=== PATIENT | male | born 1990 | race Caucasian/White ===

== ENCOUNTER 2017-01-12 17:46 | Inpatient (IN) | payer OTHER ==
[2017-01-12] VITALS (7 sets, daily range): BP systolic 111–136; BP diastolic 56–73; PULSE 52–86; RESP 15–20; TEMP 96.9–98.7; O2SAT 98–100
[~2017-01-12] VITALS: Ht 177.8 cm; Wt 69.7 kg
--- NOTE | 2017-01-12 18:08 | PD ---
HPI Chief Complaint: Hip Injury Time Seen by Provider: 18:08 Travel History International Travel<30 days: No Contact w/Intl Traveler<30days: No Traveled to known affect area: No History of Present Illness HPI 26 year old male with PMH of IVDA, MSSA osteomyelitis and sepsis of right hip presents to the ED for evaluation of right hip pain. Onset 2 days ago after physical day at work. Patient states the pain is minimal at rest but increases to 10 out of 10 with attempted weightbearing. Patient endorses limitations to range of motion secondary to pain. Patient has been ambulating with crutches. He denies fevers, chills, palpitations, chest pain, shortness of breath, abdominal pain, N/V/D, muscular weakness, numbness or tingling. Patient states that he was admitted to [facility] on January 10. He states that at that time he was diagnosed with osteomyelitis and told that he was to be administered 6 weeks of IV antibiotics. He states that he became agitated after being told that he was not able to have visitors and he left AGAINST MEDICAL ADVICE. Patient also endorses previous history with diagnosis of osteomyelitis in August of this year. He states he was treated at [facility], admitted from August 31-. He never followed up as instructed discharge. He states that he is a "occasional" IVD user, injecting Dilaudid, last use approximately one month ago. REPLACED BY [facility] Social History Alcohol Use: Yes (occasional) Tobacco Use: Yes (one pack per day since age 17) Substance Use: Yes (IV Dilaudid) Allergies-Medications (Allergen,Severity, Reaction): Coded Allergies: No Known Allergies (Unverified , 01/12/17) Reported Meds & Prescriptions Reported Meds & Active Scripts Active Reported Ibuprofen 200 Mg Cap 200 Mg PO Q4H PRN Review of Systems Except as stated in HPI: all other systems reviewed are Neg Physical Exam Narrative GENERAL: Well-nourished, well-developed nontoxic-appearing white male in no acute distress. SKIN: Focused skin assessment warm/dry. HEAD: Normocephalic. EYES: No scleral icterus. No injection or drainage. NECK: Supple, trachea midline. No JVD or lymphadenopathy. CARDIOVASCULAR: Regular rate and rhythm without murmurs, gallops, or rubs. RESPIRATORY: Breath sounds clear and equal bilaterally. No accessory muscle use. GASTROINTESTINAL: Abdomen soft, non-tender, nondistended. Active bowel sounds. MUSCULOSKELETAL: No cyanosis, or edema. FOCUSED RIGHT LOWER EXTREMITY EXAM: 2+ DP pulse. Patient is holding the leg in internal rotation. No leg length discrepancy. Tender to palpation of the right anterolateral hip. Flexion of the hip elicits pain. Internal and external rotation of the hip elicits pain. Sensation intact to light touch distally. Cap refill less than 2 seconds. BACK: Nontender without obvious deformity. No CVA tenderness. Data Data Last Documented VS Vital Signs Date Time Temp Pulse Resp B/P Pulse Ox O2 Delivery O2 Flow Rate FiO2 01/12/17 20:48 63 18 118/73 99 Room Air 01/12/17 17:49 98.7 Orders Complete Blood Count With Diff (01/12/17 18:28) Blood Culture (01/12/17 18:28) Iv Access Insert/Monitor (01/12/17 18:28) Ketorolac Inj (Toradol Inj) (01/12/17 18:30) Hip, Uni(Ap&Lat) Wo Ap Pelvis (01/12/17 18:28) Urinalysis - C+S If Indicated (01/12/17 18:28) Ecg Monitoring (01/12/17 18:28) Drug Screen, Random Urine (01/12/17 18:28) Comprehensive Metabolic Panel (01/12/17 18:28) Oxycodone-Acetamin 5-325 Mg (Percocet (01/12/17 20:45) Vancomycin Inj (Vancomycin Inj) (01/12/17 21:00) Cefepime Inj (Maxipime Inj) (01/12/17 21:00) Mri Pelvis W&W/O Contrast (01/12/17 ) Admit Order (Ed Use Only) (01/12/17 21:33) Consult Infectious Disease (01/12/17 ) Consult Orthopedic (01/12/17 ) Labs Laboratory Tests Test 01/12/17 01/12/17 19:40 20:25 White Blood Count 11.4 TH/MM3 Red Blood Count 4.20 MIL/MM3 Hemoglobin 12.1 GM/DL Hematocrit 35.2 % Mean Corpuscular Volume 84.0 FL Mean Corpuscular Hemoglobin 28.9 PG Mean Corpuscular Hemoglobin 34.4 % Concent Red Cell Distribution Width 13.9 % Platelet Count 240 TH/MM3 Mean Platelet Volume 8.5 FL Neutrophils (%) (Auto) 70.7 % Lymphocytes (%) (Auto) 20.5 % Monocytes (%) (Auto) 8.0 % Eosinophils (%) (Auto) 0.7 % Basophils (%) (Auto) 0.1 % Neutrophils # (Auto) 8.0 TH/MM3 Lymphocytes # (Auto) 2.3 TH/MM3 Monocytes # (Auto) 0.9 TH/MM3 Eosinophils # (Auto) 0.1 TH/MM3 Basophils # (Auto) 0.0 TH/MM3 CBC Comment DIFF FINAL Differential Comment Sodium Level 140 MEQ/L Potassium Level 3.2 MEQ/L Chloride Level 103 MEQ/L Carbon Dioxide Level 30.7 MEQ/L Anion Gap 6 MEQ/L Blood Urea Nitrogen 5 MG/DL Creatinine 0.61 MG/DL Estimat Glomerular Filtration 160 ML/MIN Rate Random Glucose 98 MG/DL Calcium Level 8.7 MG/DL Total Bilirubin 0.2 MG/DL Aspartate Amino Transf 17 U/L (AST/SGOT) Alanine Aminotransferase 38 U/L (ALT/SGPT) Alkaline Phosphatase 68 U/L Total Protein 7.1 GM/DL Albumin 2.7 GM/DL Urine Color YELLOW Urine Turbidity CLEAR Urine pH 6.0 Urine Specific [place] 1.010 Urine Protein NEG mg/dL Urine Glucose (UA) NEG mg/dL Urine Ketones NEG mg/dL Urine Occult Blood NEG Urine Nitrite NEG Urine Bilirubin NEG Urine Urobilinogen LESS THAN 2.0 MG/DL Urine Leukocyte Esterase TRACE Urine Hyaline Casts 1 /lpf Microscopic Urinalysis Comment CULT NOT INDICATED Urine Opiates Screen NEG Urine Barbiturates Screen POS Urine Amphetamines Screen NEG Urine Benzodiazepines Screen NEG Urine Cocaine Screen NEG Urine Cannabinoids Screen POS [facility] Medical Decision Making Medical Screen Exam Complete: Yes Emergency Medical Condition: Yes Differential Diagnosis sacroiliitis versus osteoarthritis versus osteomyelitis versus septic joint versus other Narrative Course 26 year old male with PMH of IVDA, osteomyelitis right hip presents to the ED for evaluation of right hip pain. Onset 2 days ago. Reports minimal pain at rest but 10/10 with attempted weightbearing. Patient endorses limitations to range of motion secondary to pain. Patient has been ambulating with crutches. Patient states that he was febrile and having hip pain on January 10, went to [facility], was diagnosed with osteomyelitis and and told that he was to be administered 6 weeks of IV antibiotics. He states that he left AGAINST MEDICAL ADVICE. Patient also endorses previous history with diagnosis of osteomyelitis in August last year, treated at [facility], admitted from August 31-. Endorses injecting Dilaudid, last use approximately one month ago. Patient is afebrile and normotensive on presentation. Physical exam reveals a nontoxic-appearing white male in no acute distress. Ambulating with crutches. He does have tenderness to palpation over the anterolateral hip as well as pain elicited with attempted flexion and internal and external rotation. Palpable pulses in bilateral lower extremities. Neurovascularly intact. He was administered IV Toradol and by mouth Percocet. Medical record was received from [facility]. Cultures preliminarily show gram negative rods. Patient was receiving IV vancomycin and cefepime with plan for 6 weeks of treatment by ID. MRI pelvis with and without contrast report from reveals right sacroiliac joint effusion which is suspicious for septic arthritis with osteomyelitis of the right sacral ala and right iliac bone as well as myositis of the right iliacus muscle per Dr. Robert Mcfarlane. CBC: WBC 11.4, 70.7% neutrophils. Hemoglobin 12.3. CMP: Potassium 3.2, otherwise unremarkable. Hip Xray: unremarkable Patient was administered IV Vancomycin and Cefepime. MRI of the pelvis with and without contrast ordered. Plan to admit to medicine with ortho and ID consult. ID consult was placed. Call placed to Dr. Alvares, office automation technician orthopedist. He recommends consultation with spinal surgery, possible aspiration of the hip by IR if indicated pending MRI. I spoke with Dr. Douglas who agrees to accept the patient to the medicine service under Dr. Castillo. Please see medicine and ID notes for disposition. Shani Martínez January 12, 2017 18:08
[2017-01-12] MEDS ORDERED: KETOROLAC TROMETHAMINE 30 MG/ML (IVP) VIAL IVP ONE (18:30)
[2017-01-12] MEDS ORDERED: IBUP200C PO (18:46)
--- NOTE | 2017-01-12 19:14 | RADRPT ---
EXAM DATE/TIME: 01/12/2017 18:51 [facility] COMPARISON: No previous studies available for comparison. INDICATIONS : Chronic right hip pain. MEDICAL HISTORY : None. SURGICAL HISTORY : None. ENCOUNTER: Subsequent ACUITY: 2 days PAIN SCORE: 8/10 LOCATION: Right lateral FINDINGS: A two view examination of the right hip was performed. The primary and secondary trabecular pattern of the femoral neck is intact. The hip joint is of normal width without significant sclerosis or bon y hypertrophy. The acetabulum is grossly intact. CONCLUSION: Unremarkable examination of the right hip. Gaetano Izquierdo Jr., MD on January 12, 2017 at 19:11 Board Certified Radiologist. This report was verified electronically.
[2017-01-12 20:12] LABS: BASOPHIL % 0.1 % (0.0-2.0); EOSINOPHIL # 0.1 TH/MM3 (0-0.4); EOSINOPHIL % 0.7 % (0.0-4.0); HEMATOCRIT 35.2 % (39.0-51.0); HEMO FLAGS DIFF FINAL; LYMPH % 20.5 % (9.0-44.0); LYMPHOCYTE # 2.3 TH/MM3 (1.0-4.8); MEAN CORPUSCULAR HEMOGLOBIN 28.9 PG (27.0-34.0); MEAN CORPUSCULAR HGB CONC 34.4 % (32.0-36.0); NEUT % 70.7 % (16.0-70.0); PLATELET COUNT 240 TH/MM3 (150-450); RED CELL DISTRIBUTION WIDTH 13.9 % (11.6-17.2); WHITE BLOOD COUNT 11.4 TH/MM3 (4.0-11.0)
[2017-01-12 20:39] LABS: ANION GAP 6 MEQ/L (5-15); AST (GOT) 17 U/L (15-37); BICARBONATE 30.7 MEQ/L (21.0-32.0); BLOOD UREA NITROGEN 5 MG/DL (7-18); CHLORIDE 103 MEQ/L (98-107); GLOMERULAR FILTRATION RATE 160 ML/MIN (>89); POTASSIUM 3.2 MEQ/L (3.5-5.1); SODIUM (NA) 140 MEQ/L (136-145)
[2017-01-12] MEDS ORDERED: oxyCODONE/ACETAMINOPHEN 5 MG/325 MG TAB PO ONE (20:45)
[2017-01-12 20:48] LABS: ALKALINE PHOSPHATASE 68 U/L (45-117); ALT (GPT) 38 U/L (12-78); TOTAL BILIRUBIN ADULT 0.2 MG/DL (0.2-1.0)
[2017-01-12] MEDS ORDERED: VANCOMYCIN INJ 1,000 MG in SODIUM CHLOR 0.9% 250 ML INJ 250 ML IV ONE (21:00)
[2017-01-12] MEDS ORDERED: CEFEPIME INJ 1,000 MG in SODIUM CHLORIDE 0.9% INJ 100 ML IV ONE (21:00)
[2017-01-12 21:24] LABS: AMPHETAMINE, URINE NEG (NEG); BARBITURATES, URINE POS (NEG); COCAINE, URINE NEG (NEG)
[2017-01-12 21:32] LABS: BLOOD, URINE NEG (NEG); COMMENT (UR) CULT NOT INDICATED; CULTURE IF INDICATED CULT NOT INDICATED; GLUCOSE,URINE NEG (NEG); HYALINE CAST, URINE 1 /lpf (RARE); KETONE, URINE NEG (NEG); NITRITE,URINE NEG (NEG); URINE COLOR YELLOW (YELLW/STRAW)
--- NOTE | 2017-01-12 21:49 | HHI.HP ---
HPI Service Family Medicine Primary Care Physician No Primary Care Physician Admission Diagnosis Diagnoses: International Travel<30 Days: No Contact w/Intl Traveler<30days: No Known Affected Area: No History of Present Illness This is a 26-year-old male with a past medical history significant for IV drug abuse, alcohol abuse, and MSSA osteomyelitis and sepsis of the right hip. He had osteomyelitis of his hip in August, was in the hospital (at [facility] in [place]) for nearly a month, and upon discharge did not get adequate follow-up. He says that on Sunday01/08/17 he was working outside for a long time, worked really hard, and felt like his body was very sore afterwards. Then on the next day Sunday01/09/17 he felt severe pain in his right hip and he could no longer bear weight when he tried to walk. So decided to go the hospital and went to [facility]. He says he is started on vancomycin and some other antibiotics uncertain as to what was, and said that he had an MRI performed there. He says while he was there he was diagnosed with osteomyelitis and was told that he would need 6 weeks of IV antibiotics. Prior to completion of his hospitalization he left AMA yesterday because he didn't like the way he was being treated. He says his been using crutches since leaving the hospital, and the pain became too severe today so he came to [place]. Patient reports that the Toradol helps with the pain some, abduction of the hip causes severe pain, as well as flexion and extension of the hip. If he rolls onto his right side and applies pressure to the hip causes severe pain. He is only comfortable if he keeps the leg still. Throughout this whole time frame patient denied any fevers, chills, nausea vomiting, or diarrhea. Today he admits to having some abdominal pain but it is mild and tolerable. Records were obtained from [facility], an MRI pelvis with and without contrast showed right sacroiliac joint effusion which was suspicious for septic arthritis with osteomyelitis of the right sacral A LA and right iliac bone as well as myositis of the right iliac muscle. (Seamus Douglas MD R2) Review of Systems Constitutional: DENIES: Fever, Chills, Dizziness, Change in appetite Eyes: DENIES: Blurred vision, Double Vision Ears, nose, mouth, throat: DENIES: Nasal discharge, Throat pain, Running Nose, Sinus Pain Respiratory: DENIES: Cough, Sputum production, Shortness of breath Cardiovascular: DENIES: Chest pain, Lower Extremity Edema Gastrointestinal: COMPLAINS OF: Abdominal pain, DENIES: Black stools, Diarrhea , Nausea, Vomiting Musculoskeletal: COMPLAINS OF: Joint pain (right hip), Joint Swelling (right hip) Integumentary: DENIES: Rash Hematologic/lymphatic: DENIES: Bruising Neurologic: COMPLAINS OF: Abnormal gait (cant bear weight), DENIES: Headache, Seizures, Poor Balance Psychiatric: DENIES: Anxiety, Depression (Seamus Douglas MD R2) Past Family Social History Past Medical History Osteomyliltis Past Surgical History Right leg surgical repair Reported Medications Reported Meds & Active Scripts Active Reported Ibuprofen 200 Mg Cap 200 Mg PO Q4H PRN (Seamus Douglas MD R2) Allergies: Coded Allergies: No Known Allergies (Unverified , 01/12/17) Family History Grandmother of bone cancer Social History Live in [facility] in a house with several people [employer] Smoke a pack a day Last alcohol 2 months ago Smoked marijuana Couple months ago since last using IV Dilaudid (Seamus Douglas MD R2) Physical Exam Vital Signs Vital Signs Date Time Temp Pulse Resp B/P Pulse Ox O2 Delivery O2 Flow Rate FiO2 01/12/17 20:48 63 18 118/73 99 Room Air 01/12/17 19:09 63 18 130/60 99 Room Air 01/12/17 18:16 81 15 134/63 98 Room Air 01/12/17 17:55 01/12/17 17:49 98.7 86 20 136/65 100 Room Air Physical Exam GENERAL: Well-nourished, well-developed nontoxic-appearing white male in no acute distress. SKIN: Focused skin assessment warm/dry. HEAD: Normocephalic. EYES: No scleral icterus. No injection or drainage. NECK: Supple, trachea midline. No JVD or lymphadenopathy. CARDIOVASCULAR: Regular rate and rhythm without murmurs, gallops, or rubs. RESPIRATORY: Breath sounds clear and equal bilaterally. No accessory muscle use. GASTROINTESTINAL: Abdomen soft, non-tender, nondistended. Active bowel sounds. MUSCULOSKELETAL: No cyanosis, or edema. FOCUSED RIGHT LOWER EXTREMITY EXAM: 2+ DP pulse. Patient is holding the leg in internal rotation. No leg length discrepancy. Tender to palpation of the right anterolateral hip. Flexion of the hip elicits pain. Internal and external rotation of the hip elicits pain. Abduction of the hip elicits pain. Sensation intact to light touch distally. Cap refill less than 2 seconds. BACK: Nontender without obvious deformity. No CVA tenderness. Laboratory Laboratory Tests Test 01/12/17 01/12/17 19:40 20:25 White Blood Count 11.4 Red Blood Count 4.20 Hemoglobin 12.1 Hematocrit 35.2 Mean Corpuscular Volume 84.0 Mean Corpuscular Hemoglobin 28.9 Mean Corpuscular Hemoglobin 34.4 Concent Red Cell Distribution Width 13.9 Platelet Count 240 Mean Platelet Volume 8.5 Neutrophils (%) (Auto) 70.7 Lymphocytes (%) (Auto) 20.5 Monocytes (%) (Auto) 8.0 Eosinophils (%) (Auto) 0.7 Basophils (%) (Auto) 0.1 Neutrophils # (Auto) 8.0 Lymphocytes # (Auto) 2.3 Monocytes # (Auto) 0.9 Eosinophils # (Auto) 0.1 Basophils # (Auto) 0.0 CBC Comment DIFF FINAL Differential Comment Sodium Level 140 Potassium Level 3.2 Chloride Level 103 Carbon Dioxide Level 30.7 Anion Gap 6 Blood Urea Nitrogen 5 Creatinine 0.61 Estimat Glomerular Filtration 160 Rate Random Glucose 98 Calcium Level 8.7 Total Bilirubin 0.2 Aspartate Amino Transf 17 (AST/SGOT) Alanine Aminotransferase 38 (ALT/SGPT) Alkaline Phosphatase 68 Total Protein 7.1 Albumin 2.7 Urine Opiates Screen NEG Urine Barbiturates Screen POS Urine Amphetamines Screen NEG Urine Benzodiazepines Screen NEG Urine Cocaine Screen NEG Urine Cannabinoids Screen POS Date/Time Procedure Status Source Growth 01/12/17 19:48 Aerobic Blood Culture Received Blood Peripheral Pending 01/12/17 19:48 Anaerobic Blood Culture Received Blood Peripheral Pending (Seamus Douglas MD R2) Result Diagram: 01/12/17193901/12/171939 Imaging Last Impressions Hip X-Ray 01/12/171827 Signed Impressions: Service Date/Time: Thursday, January 12, 2017 18:51 - CONCLUSION: Unremarkable examination of the right hip. Gaetano Izquierdo Jr., MD MRI pending (Seamus Douglas MD R2) Assessment and Plan Assessment and Plan This is a 26-year-old male with a past medical history significant for IV drug abuse, alcohol abuse, and MSSA osteomyelitis and sepsis of the right hip. Being admitted for osteomyelitis of the sacroiliac joint Code Status Full code Discussed Condition With [facility]DW: Dr. Castillo (Seamus Douglas MD R2) Attending Attestation THIS CASE WAS DISCUSSED WITH THE RESIDENT PHYSICIANS. I HAVE REVIEWED THE RECORD AND AGREE WITH THE ABOVE NOTE AND PLAN OF CARE WAS DISCUSSED. I HAVE AUTHORIZED THE ORDER FOR ADMISSION TO AN IN-PATIENT STATUS. (Joshua Castillo MD) Problem List: (1) Osteomyelitis Status: Acute Plan: Patient recently diagnosed with osteomyelitis and for a hospital, left AMA and is now here at [place] for further treatment. Patient is afebrile white blood cell count elevated 11.4. Patient is having severe pain in his right hip. MRI of for the hospital suggestive for sacroiliac osteomyelitis. MRI here at [place] pending. * Admitted to inpatient * Orthopedic surgery consulted, recommendations appreciated * Infectious disease consulted, recommendations appreciated * Anticipate consultation of neurosurgery pending results of MRI * Anticipate IR consultation for possible drainage pending results of MRI * Cefepime 1 g IV every 12 hours * Vancomycin 1.2 g IV every 8 hours, pharmacy consult * Liberal 12/3024 mg every 4 hours when necessary pain scale 1-4 * Liberal 10/325 mg every 4 hours when necessary pain scale 5-10 * Toradol breakthrough pain * Blood cultures pending * CBC, BMP ordered for the a.m. (2) Hx of drug abuse Status: Acute Plan: Patient reported history of IV drug abuse. Drug of choice was IV Dilaudid. Patient also had a history of alcohol abuse. Reports that he is to abstain from both of these for the last couple months. * CIWA protocol in place * PO rally pack * Monitor for withdrawal at this time (3) Nutrition, metabolism, and development symptoms Status: Acute Plan: Diet: Regular diet Fluids: By mouth intake adequate Monitor electrolytes and replace accordingly Vitals every 4 Bed rest with bathroom privileges Physical therapy has been consulted Case management has been consulted DVT prophylaxis with SCDs and heparin CODE STATUS: Full code Disposition: Anticipate long hospitalization due to need for IV antibiotics (Seamus Douglas MD R2) Physician Certification 2 Midnight Certification Type: Admission for Inpatient Services Order for Inpatient Services The services are ordered in accordance with Medicare regulations or non- Medicare payer requirements, as applicable. In the case of services not specified as inpatient-only, they are appropriately provided as inpatient services in accordance with the 2-midnight benchmark. Estimated LOS (days): 3 days is the estimated time the patient will need to remain in the hospital, assuming treatment plan goals are met and no additional complications. Post-Hospital Plan: Home (Seamus Douglas MD R2) Problem Qualifiers (1) Osteomyelitis: Seamus Douglas MD R2 January 12, 2017 21:49 Joshua Castillo MD January 13, 2017 14:09
[2017-01-12] MEDS ORDERED: LORazepam 2 MG/ML VIAL IV PUSH PRN ×4 (22:15)
[2017-01-12] MEDS ORDERED: Vancomycin Consult Pharmacy 1 EA OTHER SCH (22:15)
[2017-01-12] MEDS ORDERED: ACETAMINOPHEN 325 MG TAB PO PRN (22:15)
[2017-01-12] MEDS ORDERED: FLUMAZENIL 0.5 MG/5 ML VIAL IV PUSH PRN (22:15)
[2017-01-12] MEDS ORDERED: VANCOMYCIN INJ 1,000 MG in SODIUM CHLOR 0.9% 250 ML INJ 250 ML IV SCH (22:15)
[2017-01-12] MEDS ORDERED: cloNIDine HCL 0.1 MG TAB PO PRN (22:15)
[2017-01-12] MEDS ORDERED: LORazepam 1 MG TAB PO PRN (22:15)
[2017-01-12] MEDS ORDERED: ZOLPIDEM TARTRATE 5 MG TAB PO PRN (22:15)
[2017-01-12] MEDS ORDERED: ONDANSETRON HCL 4 MG/2 ML VIAL IVP PRN (22:15)
[2017-01-12] MEDS ORDERED: NALOXONE HCL 0.4 MG/ML AMP IV PRN (22:15)
[2017-01-12] MEDS ORDERED: LORazepam 2 MG TAB PO PRN (22:15)
[2017-01-12] MEDS ORDERED: GADODIAMIDE PF 287 MG/ML 5 ML VIAL (for RAD MRI) IV ONE (22:27)
[2017-01-12] MEDS ORDERED: ACETAMINOPHEN/HYDROcodone 325 MG/5 MG TAB PO PRN (22:45)
[2017-01-12] MEDS ORDERED: KETOROLAC TROMETHAMINE 60 MG/2 ML (IM) VIAL IM PRN (22:45)
--- NOTE | 2017-01-12 22:49 | RADRPT ---
EXAM DATE/TIME: 01/12/2017 22:00 [facility] COMPARISON: HIP RIGHT (AP&LAT 2/3VWS) WO AP PELVIS, January 12, 2017, 18:51. INDICATIONS : Pain. Osteomyelitis. CONTRAST: 14 cc Omniscan (gadodiamide) IV MEDICAL HISTORY : Hepatitis C. SURGICAL HISTORY : Right leg. ENCOUNTER: Subsequent ACUITY: 3 day PAIN SCORE: 8/10 LOCATION: Right hip TECHNIQUE: Multiplanar, multisequence magnetic resonance imaging of the pelvis was performed. FINDINGS: There is marrow edema seen involving the right sacral ala. There is also edema seen involving the mar row of the right iliac wing extending down to the ischium. Soft tissue edema seen surrounding these b bubba structures. In particular the right iliac is muscle shows edema as well as a small intramuscular abscess that measures 1.8 x 3.1 cm. And shows peripheral irregular rim enhancement. The femoral head and femoral neck are unremarkable bilaterally. Left hemipelvis is unremarkable. Free fluid is seen de ep within the pelvis. CONCLUSION: 1. Marrow edema involving the right sacral ala as well as the right hemipelvis as detailed above. The re is surrounding soft tissue edema as well as edema involving the right iliacus muscle. A small intr amuscular abscess is seen involving the right iliacus muscle. This is consistent with osteomyelitis. 2. Small volume free fluid within the pelvis. Gaetano Izquierdo Jr., MD on January 12, 2017 at 22:42 Board Certified Radiologist. This report was verified electronically.
[2017-01-12] MEDS: HEPARIN SODIUM - SQ 10,000 UNITS/ML VIAL SQ SCH (22:58)
[2017-01-13] MEDS: ACETAMINOPHEN/HYDROcodone 325 MG/10 MG TAB PO PRN ×6 (00:08→23:10)
[2017-01-13 04:30] VITALS: BP 117/70; PULSE 52; RESP 17; TEMP 96.8; O2SAT 100
[2017-01-13] MEDS: HEPARIN SODIUM - SQ 10,000 UNITS/ML VIAL SQ SCH ×3 (05:58→22:15)
[2017-01-13 07:01] LABS: AUTOMATED NEUTROPHIL # 7.5 TH/MM3 (1.8-7.7); BASOPHIL % 0.2 % (0.0-2.0); EOSINOPHIL # 0.1 TH/MM3 (0-0.4); EOSINOPHIL % 0.8 % (0.0-4.0); HEMATOCRIT 35.1 % (39.0-51.0); HEMO FLAGS DIFF FINAL; LYMPH % 21.2 % (9.0-44.0); LYMPHOCYTE # 2.3 TH/MM3 (1.0-4.8); MEAN CORPUSCULAR HEMOGLOBIN 28.7 PG (27.0-34.0); MEAN CORPUSCULAR HGB CONC 33.8 % (32.0-36.0); MONO % 7.3 % (0.0-8.0); NEUT % 70.5 % (16.0-70.0); PLATELET COUNT 239 TH/MM3 (150-450); RED BLOOD COUNT 4.12 MIL/MM3 (4.50-5.90); RED CELL DISTRIBUTION WIDTH 14.2 % (11.6-17.2); WHITE BLOOD COUNT 10.7 TH/MM3 (4.0-11.0)
[2017-01-13 07:27] LABS: BICARBONATE 30.4 MEQ/L (21.0-32.0); MAGNESIUM 2.1 MG/DL (1.5-2.5); POTASSIUM 3.6 MEQ/L (3.5-5.1)
[2017-01-13 08:00] VITALS: BP 100/56; PULSE 51; RESP 16; TEMP 96.6; O2SAT 97
[2017-01-13] MEDS ORDERED: VANCOMYCIN INJ 1,200 MG in SODIUM CHLOR 0.9% 250 ML INJ 250 ML IV SCH (08:00)
[2017-01-13] MEDS ORDERED: VANCOMYCIN INJ 1,250 MG in SODIUM CHLOR 0.9% 250 ML INJ 250 ML IV SCH (08:00)
--- NOTE | 2017-01-13 08:55 | HHI.FPPN ---
Subjective Remarks FM Attending Note: Patient seen and examined. S: Chart and all resident physician notes reviewed. In summary this is a 26 year old male who was admitted with an admission diagnosis of Right Hip Pain, Leukocytosis, Ivda. This patient has a history of IV drug abuse. He was hospitalized at [facility] in [place] of the first of this year with an infection in his right hip. He reports he was in the hospital for approximately one month and treated with IV antibiotics. He again began noting pain in his right hip and was hospitalized locally at [facility] on and was diagnosed with an infection of the right hip and again was started on IV antibiotic therapy. No cultures were apparently done during this hospitalization of the hip. The patient was dissatisfied with his care and signed out AMA and presented to our emergency room. This morning he does note continued pain in his right hip which is unchanged from the intensity over the last several days. No fever chills are noted. No shortness of breath or chest pain or noted. No palpitations are noted. Objective Vitals Vital Signs Date Time Temp Pulse Resp B/P Pulse Ox O2 Delivery O2 Flow Rate FiO2 01/13/17 08:00 96.6 51 16 100/56 97 01/13/17 04:30 96.8 52 17 117/70 100 01/12/17 23:30 96.9 52 17 117/58 98 01/12/17 22:58 52 18 122/70 99 01/12/17 21:46 68 18 111/56 98 Room Air 01/12/17 20:48 63 18 118/73 99 Room Air 01/12/17 19:09 63 18 130/60 99 Room Air 01/12/17 18:16 81 15 134/63 98 Room Air 01/12/17 17:55 01/12/17 17:49 98.7 86 20 136/65 100 Room Air I/O 01/12/17 01/12/17 01/12/17 01/13/17 01/13/17 01/13/17 07:00 15:00 23:00 07:00 15:00 23:00 Intake Total 485 ml Balance 485 ml Intake Oral 240 ml IV Total 245 ml # Voids 1 # Bowel Movements 0 Result Diagram: 01/13/17 0619 01/13/17 0619 Other Results Item Value Date Time Magnesium Level 2.1 MG/DL 01/13/17618 Total Bilirubin 0.2 MG/DL 01/12/171939 Aspartate Amino Transf (AST/SGOT) 17 U/L 01/12/171939 Alanine Aminotransferase (ALT/SGPT) 38 U/L 01/12/171939 Alkaline Phosphatase 68 U/L 01/12/171939 Total Protein 7.1 GM/DL 01/12/171939 Albumin 2.7 GM/DL L 01/12/171939 Urine Specific [place] 1.010 01/12/172024 Urine Occult Blood NEG 01/12/172024 Urine Nitrite NEG 01/12/172024 Urine Leukocyte Esterase TRACE H 01/12/172024 Imaging Last 48 hours Impressions Hip X-Ray 01/12/17 1828 Signed Impressions: Service Date/Time: Thursday, January 12, 2017 18:51 - CONCLUSION: Unremarkable examination of the right hip. Gaetano Izquierdo Jr., MD Pelvis MRI 01/12/17 0000 Signed Impressions: Service Date/Time: Thursday, January 12, 2017 22:00 - CONCLUSION: 1. Marrow edema involving the right sacral ala as well as the right hemipelvis as detailed above. There is surrounding soft tissue edema as well as edema involving the right iliacus muscle. A small intramuscular abscess is seen involving the right iliacus muscle. This is consistent with osteomyelitis. 2. Small volume free fluid within the pelvis. Gaetano Izquierdo Jr., MD Objective Remarks O. CONSTITUTIONAL/GEN: normally nourished, in NAD. EYES: conjunctiva normal, PERRLA, EOMI. ENT: Mouth and pharynx normal. NECK: thyroid midline, carotids symmetrical. LUNGS: clear A-P, respiratory effort is normal. CARDIOVASCULAR: RR without murmur or gallop. No significant edema. GI/ABD: soft without masses, without organomegaly. NEURO: No focal deficits. HEME/LYMPH: no bruising, petechia or significant adenopathy MUSC: back is normal in appearance. Pain in right hemipelvis area, right hip. PSYCH/MENTAL STATUS: Alert and oriented x 3. A/P Assessment and Plan This is a 26-year-old male with a past medical history significant for IV drug abuse, alcohol abuse, and MSSA osteomyelitis and sepsis of the right hip. Being admitted for osteomyelitis of the sacroiliac joint Problem List: (1) Osteomyelitis Status: Acute Plan: Patient recently diagnosed with osteomyelitis and for a hospital, left AMA and is now here at [place] for further treatment. Patient is afebrile white blood cell count elevated 11.4. Patient is having severe pain in his right hip. MRI of for the hospital suggestive for sacroiliac osteomyelitis. MRI here at [place] pending. * Admitted to inpatient * Orthopedic surgery consulted, recommendations appreciated * Infectious disease consulted, recommendations appreciated * Anticipate consultation of neurosurgery pending results of MRI * Anticipate IR consultation for possible drainage pending results of MRI * Cefepime 1 g IV every 12 hours * Vancomycin 1.2 g IV every 8 hours, pharmacy consult * [place] 12/3024 mg every 4 hours when necessary pain scale 1-4 * [place] 10/325 mg every 4 hours when necessary pain scale 5-10 * Toradol breakthrough pain * Blood cultures pending * CBC, BMP ordered for the a.m. 01/13/17 The patient reports that he did have a procedure to obtain cultures from the right hip/pelvis area when in [place] but not at [facility] locally. We will try to obtain the original culture results. Will consult infectious disease for recommendations regarding further treatment. Orthopedic consult has been obtained. (2) Hx of drug abuse Status: Acute Plan: Patient reported history of IV drug abuse. Drug of choice was IV Dilaudid. Patient also had a history of alcohol abuse. Reports that he is to abstain from both of these for the last couple months. * CIWA protocol in place * PO rally pack * Monitor for withdrawal at this time (3) Nutrition, metabolism, and development symptoms Status: Acute Plan: Diet: Regular diet Fluids: By mouth intake adequate Monitor electrolytes and replace accordingly Vitals every 4 Bed rest with bathroom privileges Physical therapy has been consulted Case management has been consulted DVT prophylaxis with SCDs and heparin CODE STATUS: Full code Disposition: Anticipate long hospitalization due to need for IV antibiotics Problem Qualifiers (1) Osteomyelitis: Joshua Castillo MD January 13, 2017 08:55
[2017-01-13] MEDS: DOCUSATE SODIUM 50 MG/SENNA 8.6 MG TAB PO SCH ×2 (09:00→20:54)
[2017-01-13] MEDS: REMOVE OLD PATCH T-DERMAL SCH (09:00)
[2017-01-13] MEDS: FOLIC ACID 1 MG TAB PO SCH (09:48)
[2017-01-13] MEDS: MULTIVITAMINS/MINERALS THERAPEUTIC TAB PO SCH (09:48)
[2017-01-13] MEDS: NICOTINE 21 MG/24 HR PATCH T-DERMAL SCH (09:49)
[2017-01-13] MEDS: THIAMINE HCL 100 MG TAB PO SCH (09:49)
[2017-01-13] MEDS: SODIUM CHLORIDE 0.9% FLUSH 10 ML FLUSH IV FLUSH SCH ×2 (09:51→20:54)
[2017-01-13] MEDS ORDERED: CEFEPIME INJ 1,000 MG in SODIUM CHLORIDE 0.9% INJ 100 ML IV SCH (10:00)
[2017-01-13] MEDS ORDERED: VANCOMYCIN 1,000 MG/NS 250 ML IV ONE ×2 (10:30)
[2017-01-13 12:00] VITALS: BP 121/61; PULSE 60; RESP 16; TEMP 98; O2SAT 97
[2017-01-13] MEDS: KETOROLAC TROMETHAMINE 30 MG/ML (IVP) VIAL IV PUSH PRN ×2 (12:40→18:56)
--- NOTE | 2017-01-13 14:47 | PD.ID.CON ---
History of Present Illness Service ID Consult Requested By Dr Douglas Reason for Consult R hip ostreomyelitis Primary Care Physician No Primary Care Physician Diagnoses: History of Present Illness This is a 26-year-old male with a past medical history significant for IV drug abuse, alcohol abuse, and MSSA osteomyelitis of the right hip. He had osteomyelitis of his hip in August, was in the hospital (at [facility] in [place]) for nearly a month, and upon discharge did not get adequate follow-up - pre records Pt told he received about 3.5 weeks of IV abx then he took 4 weeks of Keflex ,. His smx resolved He resdtarted IV drugs after discharge with the last injection probably atound 1.5 mos ago He has developped severe pain in his right hip in the last 5 days and he can no longer bear weight when he tried to walk. He initially presented to [facility] and was started on antibiotics, including vancomycin He had MRI performed there which showed osteomyelitis and placed on 6 weeks of IV antibiotics, but he left AMA yesterday on 01/11/17 He presented yday for ongoing severe R hip pain and inability to walk He was started o cefepime, vancomycin. His blood clx submitted in [facility] on 01/09 are now growing Kleb pneumo 2/2. Its sensitivite o everythin on the panel exceppt for ampicillin History was obtained from the pt and from records both [place] and [facility] Review of Systems Except as stated in HPI: all other systems reviewed are Neg Past Family Social History Allergies: Coded Allergies: No Known Allergies (Unverified , 01/12/17) Past Medical History Osteomyliltis Past Surgical History Right leg surgical repair Active Ordered Medications Medications where reviewed in EMR Antibiotics Include: vancomycin cefepime Family History Grandmother of bone cancer Social History Live in [facility] in a house with several people tobacco 1 ppd Last alcohol 2 months ago Smoked marijuana Couple months ago since last using IV Dilaudid Physical Exam Vital Signs Vital Signs Date Time Temp Pulse Resp B/P Pulse Ox O2 Delivery O2 Flow Rate FiO2 01/13/17 12:00 98.0 60 16 121/61 97 01/13/17 08:00 96.6 51 16 100/56 97 01/13/17 04:30 96.8 52 17 117/70 100 01/12/17 23:30 96.9 52 17 117/58 98 01/12/17 22:58 52 18 122/70 99 01/12/17 21:46 68 18 111/56 98 Room Air 01/12/17 20:48 63 18 118/73 99 Room Air 01/12/17 19:09 63 18 130/60 99 Room Air 01/12/17 18:16 81 15 134/63 98 Room Air 01/12/17 17:55 01/12/17 17:49 98.7 86 20 136/65 100 Room Air Physical Exam CONSTITUTIONAL/GENERAL: This is an adequately nourished patient, in no apparent distress. TUBES/LINES/DRAINS: SKIN: No jaundice, rashes, or lesions. Skin temperature appropriate. Not diaphoretic. HEAD: Atraumatic. Normocephalic. EYES: Pupils equal and round and reactive. Extraocular motions intact. No scleral icterus. No injection or drainage. Fundi not examined. ENT: Hearing grossly normal. Nose without bleeding or purulent drainage. Oral mucosae without visible erythema, exudates, masses, or lesions. NECK: Trachea midline. Supple, nontender. CARDIOVASCULAR: Regular rate and rhythm without gallops, or rubs. 2/6 systolic blowing murmur with max on LUSB No JVD. Peripheral pulses symmetric. RESPIRATORY/CHEST: Symmetric, unlabored respirations. Clear to auscultation. Breath sounds equal bilaterally. No wheezes, rales, or rhonchi. GASTROINTESTINAL: Abdomen soft, non-tender, nondistended. No hepato-splenomegaly , or palpable masses. No guarding. Bowel sounds present. GENITOURINARY: Without palpable bladder distension. MUSCULOSKELETAL: Extremities without clubbing, cyanosis, or edema. No joint tenderness or effusion noted. No calf tenderness. No mottling or clubbing. No chnage over L hip, no swelling or red ness, but is tender to palpation LYMPHATICS: No palpable cervical or supraclavicular adenopathy. NEUROLOGICAL: Awake and alert. Motor and sensory grossly within normal limits. Follows commands. Normal speech. Moves all extremities. PSYCHIATRIC: No obvious anxiety/depression. no apparent hallucinations or other psychotic thought process. Laboratory Laboratory Tests Test 01/12/17 01/12/17 01/13/17 19:40 20:25 06:19 White Blood Count 11.4 10.7 Red Blood Count 4.20 4.12 Hemoglobin 12.1 11.8 Hematocrit 35.2 35.1 Mean Corpuscular Volume 84.0 85.0 Mean Corpuscular Hemoglobin 28.9 28.7 Mean Corpuscular Hemoglobin 34.4 33.8 Concent Red Cell Distribution Width 13.9 14.2 Platelet Count 240 239 Mean Platelet Volume 8.5 8.6 Neutrophils (%) (Auto) 70.7 70.5 Lymphocytes (%) (Auto) 20.5 21.2 Monocytes (%) (Auto) 8.0 7.3 Eosinophils (%) (Auto) 0.7 0.8 Basophils (%) (Auto) 0.1 0.2 Neutrophils # (Auto) 8.0 7.5 Lymphocytes # (Auto) 2.3 2.3 Monocytes # (Auto) 0.9 0.8 Eosinophils # (Auto) 0.1 0.1 Basophils # (Auto) 0.0 0.0 CBC Comment DIFF FINAL DIFF FINAL Differential Comment Sodium Level 140 144 Potassium Level 3.2 3.6 Chloride Level 103 107 Carbon Dioxide Level 30.7 30.4 Anion Gap 6 7 Blood Urea Nitrogen 5 6 Creatinine 0.61 0.50 Estimat Glomerular Filtration 160 201 Rate Random Glucose 98 95 Calcium Level 8.7 8.3 Total Bilirubin 0.2 Aspartate Amino Transf 17 (AST/SGOT) Alanine Aminotransferase 38 (ALT/SGPT) Alkaline Phosphatase 68 Total Protein 7.1 Albumin 2.7 Urine Color YELLOW Urine Turbidity CLEAR Urine pH 6.0 Urine Specific [place] 1.010 Urine Protein NEG Urine Glucose (UA) NEG Urine Ketones NEG Urine Occult Blood NEG Urine Nitrite NEG Urine Bilirubin NEG Urine Urobilinogen LESS THAN 2.0 Urine Leukocyte Esterase TRACE Urine Hyaline Casts 1 Microscopic Urinalysis Comment CULT NOT INDICATED Urine Opiates Screen NEG Urine Barbiturates Screen POS Urine Amphetamines Screen NEG Urine Benzodiazepines Screen NEG Urine Cocaine Screen NEG Urine Cannabinoids Screen POS Phosphorus Level 3.4 Magnesium Level 2.1 Date/Time Procedure Status Source Growth 01/12/17 19:48 Aerobic Blood Culture - Preliminary Resulted Blood Peripheral NO GROWTH IN 1 DAY 01/12/17 19:48 Anaerobic Blood Culture - Preliminary Resulted Blood Peripheral NO GROWTH IN 1 DAY Result Diagram: 01/13/17 0619 01/13/17 0619 Imaging Last Impressions Hip X-Ray 01/12/17 7441 Signed Impressions: Service Date/Time: Thursday, January 12, 2017 18:51 - CONCLUSION: Unremarkable examination of the right hip. Gaetano Izquierdo Jr., MD Pelvis MRI 01/12/17 0000 Signed Impressions: Service Date/Time: Thursday, January 12, 2017 22:00 - CONCLUSION: 1. Marrow edema involving the right sacral ala as well as the right hemipelvis as detailed above. There is surrounding soft tissue edema as well as edema involving the right iliacus muscle. A small intramuscular abscess is seen involving the right iliacus muscle. This is consistent with osteomyelitis. 2. Small volume free fluid within the pelvis. Gaetano Izquierdo Jr., MD Assessment and Plan Assessment and Plan R hip and hemipelvis osteomyelits, intramuscular abscess Previously MSSA (established by blood clx) Kleb pneumpo bacteremia: new issue Pt never had bx for clx , IVDU Cardiac murmur - ortho consult - obtain clx from the bone (surgically or IR) - 2 D echo - dc vancomycin, cefepime - start CFTX 2 gm daily - more recs per clx Estelle Lang MD January 13, 2017 14:47
[2017-01-13 16:00] VITALS: BP 128/62; PULSE 65; RESP 16; TEMP 98.6; O2SAT 97
--- NOTE | 2017-01-13 16:42 | PD.CONS ---
cc: Rodo Alvares MD HPI Service Orthopedic Surgeons Consult Requested By ED staff Reason for Consult possible septic arthritis right hip Primary Care Physician No Primary Care Physician Admission Diagnosis Diagnoses: (1) Hx of drug abuse (2) Sacroiliitis (3) Osteomyelitis of sacroiliac region Chief Complaint: Right hip and buttock pain History of Present Illness 26 year old male with PMH of IVDA, MSSA osteomyelitis and sepsis of right hip presents to [facility] for evaluation of right hip pain. Onset 4 days ago after physical day at work. Patient states the pain is minimal at rest but increases to 10 out of 10 with attempted weightbearing. Patient endorses limitations to range of motion secondary to pain. Patient has been ambulating with crutches. He denies fevers, chills, palpitations, chest pain, shortness of breath, abdominal pain, N/V/D, muscular weakness, numbness or tingling. Patient states that he was admitted to [facility] on January 10. He states that at that time he was diagnosed with osteomyelitis and told that he was to be administered 6 weeks of IV antibiotics. He states that he became agitated after being told that he was not able to have visitors and he left AGAINST MEDICAL ADVICE. Patient also endorses previous history with diagnosis of osteomyelitis in August of this year. He states he was treated at [facility], admitted from August 31-. He never followed up as instructed discharge. He states that he is a "occasional" IVD user, injecting Dilaudid, last use approximately one month ago. The patient has been placed on antibiotics and is improving. A newer culture revealed Klebsiella pneumo. While at [facility] orthopedics was consulted and he saw my associate Dr. Galarza. Recommendations were given for medical management. A MRI was completed yesterday of the pelvis which revealed bony edematous changes in the sacrum, ilium and ishium with a suggestion of a very small fluid collection in the iliacus muscle. There did not appear to be any acute findings in the hip joint. Currently the patient feels much better than he did yesterday. He is able to ambulate with less pain. Review of Systems Reviewed and well outlined in the medical record Past Family Social History Past Medical History Allergies: Coded Allergies: No Known Allergies (Unverified , 01/12/17) Past Medical History Osteomyliltis Past Surgical History Right leg surgical repair Active Ordered Medications Medications where reviewed in EMR Antibiotics Include: vancomycin cefepime Family History Grandmother of bone cancer Social History Live in [facility] in a house with several people tobacco 1 ppd Last alcohol 2 months ago Smoked marijuana Couple months ago since last using IV Dilaudid Allergies: Coded Allergies: No Known Allergies (Unverified , 01/12/17) Active Ordered Medications Current Medications Medications (Trade) Dose Ordered Sig/Roel Route Start Time Stop Time Status Last Admin (NS Flush) 2 ml UNSCH PRN IV FLUSH 01/12/17 22:15 (NS Flush) 2 ml BID IV FLUSH 01/13/17 09:00 01/13/17 09:51 (Tylenol) 650 mg Q4H PRN PO 01/12/17 22:15 (Zofran Inj) 4 mg Q6H PRN IVP 01/12/17 22:15 (Ambien) 5 mg HS PRN PO 01/12/17 22:15 (Heparin Inj) 5,000 units Q8H SQ 01/12/17 22:15 (Narcan Inj) 0.4 mg UNSCH PRN IV 01/12/17 22:15 (Maria Del Rosario-Colace) 1 tab BID PO 01/13/17 09:00 (Folate) 1 mg DAILY PO 01/13/17 09:00 01/18/17 08:59 01/13/17 09:48 (Vitamin B1) 100 mg DAILY PO 01/13/17 09:00 01/13/17 09:49 (Theragran M Tab) 1 tab DAILY PO 01/13/17 09:00 01/18/17 08:59 01/13/17 09:48 (Catapres) 0.1 mg Q6H PRN PO 01/12/17 22:15 (Romazicon Inj) 0.2 mg Q1M PRN IV PUSH 01/12/17 22:15 (Ativan) 1 mg Q4H PRN PO 01/12/17 22:15 (Ativan Inj) 1 mg Q4H PRN IV PUSH 01/12/17 22:15 (Ativan) 2 mg Q2H PRN PO 01/12/17 22:15 (Ativan Inj) 2 mg Q2H PRN IV PUSH 01/12/17 22:15 (Ativan Inj) 2 mg Q1H PRN IV PUSH 01/12/17 22:15 (Ativan Inj) 2 mg Q15M PRN IV PUSH 01/12/17 22:15 (Habitrol 21 Mg Patch.24 Hr) 1 patch DAILY T-DERMAL 01/13/17 09:00 01/13/17 09:49 Miscellaneous Information 1 DAILY T-DERMAL 01/13/17 09:00 ([place] 5-325 Mg) 1 tab Q4H PRN PO 01/12/17 22:45 ([place] 10-325 Mg) 1 tab Q4H PRN PO 01/12/17 22:45 01/13/17 14:30 (Toradol Inj) 30 mg Q6HR PRN IV PUSH 01/13/17 09:15 01/18/17 09:14 01/13/17 12:40 Miscellaneous Information SPECIFIC LAB TO BE GALILEO... ONCE ONCE .XX 01/14/17 09:45 01/14/17 09:46 (Rocephin Inj/NS Inj) 100 ml @ 200 mls/hr Q24H IV 01/13/17 16:15 UNV Reported Meds & Active Scripts Active Reported Ibuprofen 200 Mg Cap 200 Mg PO Q4H PRN Physical Exam Vital Signs Vital Signs Date Time Temp Pulse Resp B/P Pulse Ox O2 Delivery O2 Flow Rate FiO2 01/13/17 12:00 98.0 60 16 121/61 97 01/13/17 08:00 96.6 51 16 100/56 97 01/13/17 04:30 96.8 52 17 117/70 100 01/12/17 23:30 96.9 52 17 117/58 98 01/12/17 22:58 52 18 122/70 99 01/12/17 21:46 68 18 111/56 98 Room Air 01/12/17 20:48 63 18 118/73 99 Room Air 01/12/17 19:09 63 18 130/60 99 Room Air 01/12/17 18:16 81 15 134/63 98 Room Air 01/12/17 17:55 01/12/17 17:49 98.7 86 20 136/65 100 Room Air Physical Exam The patient is awake and alert and answers questions appropriately. He has able to move around the bed without difficulty. He does have palpable tenderness over the sacroiliac joint. There is a suggestion of slight soft tissue swelling. There is no erythema or induration. He has no pain with passive range of motion of the right hip. He has a negative straight leg raise , 5 over 5 motor strength and no sensory deficits. Deep tendon reflexes are symmetric. Laboratory Laboratory Tests Test 01/12/17 01/12/17 01/13/17 19:40 20:25 06:19 White Blood Count 11.4 10.7 Red Blood Count 4.20 4.12 Hemoglobin 12.1 11.8 Hematocrit 35.2 35.1 Mean Corpuscular Volume 84.0 85.0 Mean Corpuscular Hemoglobin 28.9 28.7 Mean Corpuscular Hemoglobin 34.4 33.8 Concent Red Cell Distribution Width 13.9 14.2 Platelet Count 240 239 Mean Platelet Volume 8.5 8.6 Neutrophils (%) (Auto) 70.7 70.5 Lymphocytes (%) (Auto) 20.5 21.2 Monocytes (%) (Auto) 8.0 7.3 Eosinophils (%) (Auto) 0.7 0.8 Basophils (%) (Auto) 0.1 0.2 Neutrophils # (Auto) 8.0 7.5 Lymphocytes # (Auto) 2.3 2.3 Monocytes # (Auto) 0.9 0.8 Eosinophils # (Auto) 0.1 0.1 Basophils # (Auto) 0.0 0.0 CBC Comment DIFF FINAL DIFF FINAL Differential Comment Sodium Level 140 144 Potassium Level 3.2 3.6 Chloride Level 103 107 Carbon Dioxide Level 30.7 30.4 Anion Gap 6 7 Blood Urea Nitrogen 5 6 Creatinine 0.61 0.50 Estimat Glomerular Filtration 160 201 Rate Random Glucose 98 95 Calcium Level 8.7 8.3 Total Bilirubin 0.2 Aspartate Amino Transf 17 (AST/SGOT) Alanine Aminotransferase 38 (ALT/SGPT) Alkaline Phosphatase 68 Total Protein 7.1 Albumin 2.7 Urine Color YELLOW Urine Turbidity CLEAR Urine pH 6.0 Urine Specific [place] 1.010 Urine Protein NEG Urine Glucose (UA) NEG Urine Ketones NEG Urine Occult Blood NEG Urine Nitrite NEG Urine Bilirubin NEG Urine Urobilinogen LESS THAN 2.0 Urine Leukocyte Esterase TRACE Urine Hyaline Casts 1 Microscopic Urinalysis Comment CULT NOT INDICATED Urine Opiates Screen NEG Urine Barbiturates Screen POS Urine Amphetamines Screen NEG Urine Benzodiazepines Screen NEG Urine Cocaine Screen NEG Urine Cannabinoids Screen POS Phosphorus Level 3.4 Magnesium Level 2.1 Date/Time Procedure Status Source Growth 01/12/17 19:48 Aerobic Blood Culture - Preliminary Resulted Blood Peripheral NO GROWTH IN 1 DAY 01/12/17 19:48 Anaerobic Blood Culture - Preliminary Resulted Blood Peripheral NO GROWTH IN 1 DAY Result Diagram: 01/13/17 0619 01/13/17 0619 Imaging Last 48 hours Impressions Hip X-Ray 01/12/17 1828 Signed Impressions: Service Date/Time: Thursday, January 12, 2017 18:51 - CONCLUSION: Unremarkable examination of the right hip. Gaetano Izquierdo Jr., MD Pelvis MRI 01/12/17 0000 Signed Impressions: Service Date/Time: Thursday, January 12, 2017 22:00 - CONCLUSION: 1. Marrow edema involving the right sacral ala as well as the right hemipelvis as detailed above. There is surrounding soft tissue edema as well as edema involving the right iliacus muscle. A small intramuscular abscess is seen involving the right iliacus muscle. This is consistent with osteomyelitis. 2. Small volume free fluid within the pelvis. Gaetano Izquierdo Jr., MD Assessment & Plan Problem List: (1) Sacroiliitis (2) Osteomyelitis of sacroiliac region (3) Hx of drug abuse Assessment and Plan The findings were discussed. No acute orthopedic intervention is required. Recommendations are given for medical management of the infection involving his pelvis and sacroiliac joint. His hip joint does not appear to be involved. If tissue cultures are required consider consultation with interventional radiology. Depending on his response to treatment further disposition may be rendered. Please reconsult if clinically indicated. Rodo Alvares MD January 13, 2017 16:42
[2017-01-13] MEDS: cefTRIAXone INJ 2,000 MG in SODIUM CHLORIDE 0.9% INJ 100 ML IV SCH (17:36)
[2017-01-13] MEDS ORDERED: VANCOMYCIN 1,000 MG/NS 250 ML IV SCH ×2 (18:00)
[2017-01-13 20:10] VITALS: BP 129/73; PULSE 59; RESP 17; TEMP 98.6; O2SAT 98
[2017-01-14 00:15] VITALS: BP 105/65; PULSE 56; RESP 17; TEMP 96.8; O2SAT 99
[2017-01-14] MEDS: KETOROLAC TROMETHAMINE 30 MG/ML (IVP) VIAL IV PUSH PRN ×3 (03:25→23:23)
[2017-01-14] MEDS: ACETAMINOPHEN/HYDROcodone 325 MG/10 MG TAB PO PRN ×5 (03:25→20:46)
[2017-01-14] MEDS: HEPARIN SODIUM - SQ 10,000 UNITS/ML VIAL SQ SCH ×3 (06:15→22:15)
[2017-01-14 07:39] LABS: HEMATOCRIT 35.3 % (39.0-51.0); MEAN CORPUSCULAR HEMOGLOBIN 28.6 PG (27.0-34.0); MEAN CORPUSCULAR HGB CONC 33.7 % (32.0-36.0); PLATELET COUNT 278 TH/MM3 (150-450); RED BLOOD COUNT 4.15 MIL/MM3 (4.50-5.90); RED CELL DISTRIBUTION WIDTH 14.3 % (11.6-17.2); REVIEW FLAG FINAL
[2017-01-14] MEDS: SODIUM CHLORIDE 0.9% FLUSH 10 ML FLUSH IV FLUSH SCH ×2 (07:54→20:46)
[2017-01-14] MEDS: FOLIC ACID 1 MG TAB PO SCH (07:55)
[2017-01-14] MEDS: DOCUSATE SODIUM 50 MG/SENNA 8.6 MG TAB PO SCH ×2 (07:55→20:46)
[2017-01-14] MEDS: THIAMINE HCL 100 MG TAB PO SCH (07:56)
[2017-01-14] MEDS: MULTIVITAMINS/MINERALS THERAPEUTIC TAB PO SCH (07:56)
[2017-01-14] MEDS: NICOTINE 21 MG/24 HR PATCH T-DERMAL SCH (07:57)
[2017-01-14] MEDS: REMOVE OLD PATCH T-DERMAL SCH (07:57)
[2017-01-14 08:00] VITALS: BP_SYST 121; BP_SYST 140; BP_DIAS 64; BP_DIAS 75; PULSE 48; PULSE 50; RESP 16; TEMP 97.4; O2SAT 98; O2SAT 99
[2017-01-14 08:00] LABS: BICARBONATE 30.6 MEQ/L (21.0-32.0); POTASSIUM 4.1 MEQ/L (3.5-5.1)
--- NOTE | 2017-01-14 09:07 | HHI.FPPN ---
Subjective Remarks Patient seen and examined this morning. Afebrile vital signs stable. Patient reports that the hip pain has improved, but he is still feeling abdominal pain. He reports that he is having appropriate bowel movements and urinating without difficulty. Mild tenderness in the right lower quadrant to palpation. Pain believed to be due to radiation from the osteomyelitis. Informed patient of the plan to consult IR for possible drainage and biopsy of the osteomyelitis. Awaiting IR's decision, patient agrees with this plan. Endorses: Right lower quadrant abdominal pain, improved hip pain Denies: Fever, chills, nausea, vomiting, shortness of breath, chest pain, headache, calf pain (Seamus Douglas MD R2) Objective Vitals Vital Signs Date Time Temp Pulse Resp B/P Pulse Ox O2 Delivery O2 Flow Rate FiO2 01/14/17 00:15 96.8 56 17 105/65 99 01/13/17 20:10 98.6 59 17 129/73 98 01/13/17 16:00 98.6 65 16 128/62 97 01/13/17 12:00 98.0 60 16 121/61 97 I/O 01/13/17 01/13/17 01/13/17 01/14/17 01/14/17 01/14/17 07:00 15:00 23:00 07:00 15:00 23:00 Intake Total 485 ml 857 ml 240 ml 480 ml Balance 485 ml 857 ml 240 ml 480 ml Intake Oral 240 ml 480 ml 240 ml 480 ml IV Total 245 ml 377 ml # Voids 1 3 2 2 # Bowel Movements 0 0 (Seamus Douglas MD R2) Result Diagram: 01/14/17 0642 01/14/17 0642 Imaging Last Impressions Hip X-Ray 01/12/17 1828 Signed Impressions: Service Date/Time: Thursday, January 12, 2017 18:51 - CONCLUSION: Unremarkable examination of the right hip. Gaetano Izquierdo Jr., MD Pelvis MRI 01/12/17 0000 Signed Impressions: Service Date/Time: Thursday, January 12, 2017 22:00 - CONCLUSION: 1. Marrow edema involving the right sacral ala as well as the right hemipelvis as detailed above. There is surrounding soft tissue edema as well as edema involving the right iliacus muscle. A small intramuscular abscess is seen involving the right iliacus muscle. This is consistent with osteomyelitis. 2. Small volume free fluid within the pelvis. Gaetano Izquierdo Jr., MD Objective Remarks O. CONSTITUTIONAL/GEN: normally nourished, in NAD. EYES: conjunctiva normal, PERRLA, EOMI. ENT: Mouth and pharynx normal. NECK: thyroid midline, carotids symmetrical. LUNGS: clear A-P, respiratory effort is normal. CARDIOVASCULAR: RR without murmur or gallop. No significant edema. GI/ABD: soft without masses, without organomegaly. Mild right lower quadrant tenderness to palpation NEURO: No focal deficits. HEME/LYMPH: no bruising, petechia or significant adenopathy MUSC: back is normal in appearance. Pain in right hemipelvis area improved slightly PSYCH/MENTAL STATUS: Alert and oriented x 3. (Seamus Douglas MD R2) A/P Assessment and Plan This is a 26-year-old male with a past medical history significant for IV drug abuse, alcohol abuse, and MSSA osteomyelitis and sepsis of the right hip. Being admitted for osteomyelitis of the sacroiliac joint WDW: Dr. Castillo Discharge Planning Pending long course of antibiotics (Seamus Douglas MD R2) Attending Attestation Case reviewed and discussed with the resident team. Agree with plan of care as discussed with me and documented in the resident note. (Joshua Castillo MD) Problem List: (1) Osteomyelitis Status: Acute Plan: Reports improved pain control. Awaiting IR decision for possible drainage. * Admitted to inpatient * Orthopedic surgery consulted, they will not be doing any surgery due to location of osteomyelitis * Infectious disease consulted, recommendations appreciated * IR consulted for possible drainage, recommendations appreciated * Ceftriaxone 2 g IV every 24 hours * [place] 12/3024 mg every 4 hours when necessary pain scale 1-4 * [place] 10/325 mg every 4 hours when necessary pain scale 5-10 * Toradol breakthrough pain * Blood cultures no growth to date 1 (2) Hx of drug abuse Status: Acute Plan: Patient reported history of IV drug abuse. Drug of choice was IV Dilaudid. Patient also had a history of alcohol abuse. Reports that he is to abstain from both of these for the last couple months. * CIWA protocol in place * PO rally pack * Monitor for withdrawal at this time (3) Nutrition, metabolism, and development symptoms Status: Acute Plan: Diet: Regular diet Fluids: By mouth intake adequate Monitor electrolytes and replace accordingly Vitals every 4 Bed rest with bathroom privileges Physical therapy has been consulted Case management has been consulted DVT prophylaxis with SCDs and heparin CODE STATUS: Full code Disposition: Anticipate long hospitalization due to need for IV antibiotics (Seamus Douglas MD R2) Problem Qualifiers (1) Osteomyelitis: Seamus Douglas MD R2 January 14, 2017 09:07 Joshua Castillo MD January 15, 2017 12:19
[2017-01-14] MEDS ORDERED: PHARMACY ORDERED LAB ONE (09:45)
[2017-01-14 16:00] VITALS: BP 135/74; PULSE 58; RESP 16; TEMP 97.6; O2SAT 97
[2017-01-14] MEDS: cefTRIAXone INJ 2,000 MG in SODIUM CHLORIDE 0.9% INJ 100 ML IV SCH (16:45)
[2017-01-14 20:00] VITALS: BP 121/66; PULSE 61; RESP 17; TEMP 96.9; O2SAT 97
[2017-01-15] VITALS: BP 147/83; PULSE 60; RESP 17; TEMP 96.8; O2SAT 100
[2017-01-15] MEDS: ACETAMINOPHEN/HYDROcodone 325 MG/10 MG TAB PO PRN ×5 (04:34→22:06)
[2017-01-15] MEDS: KETOROLAC TROMETHAMINE 30 MG/ML (IVP) VIAL IV PUSH PRN ×3 (06:14→20:01)
[2017-01-15] MEDS: HEPARIN SODIUM - SQ 10,000 UNITS/ML VIAL SQ SCH ×3 (06:15→20:07)
[2017-01-15 08:00] VITALS: BP 135/67; PULSE 50; RESP 19; TEMP 96.6; O2SAT 96
[2017-01-15] MEDS: REMOVE OLD PATCH T-DERMAL SCH (08:51)
[2017-01-15] MEDS: FOLIC ACID 1 MG TAB PO SCH (08:51)
[2017-01-15] MEDS: NICOTINE 21 MG/24 HR PATCH T-DERMAL SCH (08:51)
[2017-01-15] MEDS: MULTIVITAMINS/MINERALS THERAPEUTIC TAB PO SCH (08:51)
[2017-01-15] MEDS: DOCUSATE SODIUM 50 MG/SENNA 8.6 MG TAB PO SCH ×2 (08:51→20:01)
[2017-01-15] MEDS: THIAMINE HCL 100 MG TAB PO SCH (08:51)
[2017-01-15] MEDS: SODIUM CHLORIDE 0.9% FLUSH 10 ML FLUSH IV FLUSH SCH ×2 (08:56→20:01)
--- NOTE | 2017-01-15 09:01 | HHI.FPPN ---
Subjective Remarks Patient is doing well this morning. He only has pain in his right hip/back area which has improved markedly from before. He denies chest pain, nausea, vomiting , shortness of breath, abdominal pain. He is aware that we are waiting on IR for possible biopsy. (Amy Atkins MD R1) Objective Vitals Vital Signs Date Time Temp Pulse Resp B/P Pulse Ox O2 Delivery O2 Flow Rate FiO2 01/15/17 00:00 96.8 60 17 147/83 100 01/14/17 20:00 96.9 61 17 121/66 97 01/14/17 17:56 16 01/14/17 17:56 16 01/14/17 16:00 97.6 58 16 135/74 97 I/O 01/14/17 01/14/17 01/14/17 01/15/17 01/15/17 01/15/17 07:00 15:00 23:00 07:00 15:00 23:00 Intake Total 480 ml 600 ml 240 ml 240 ml Output Total 450 ml Balance 480 ml 150 ml 240 ml 240 ml Intake Oral 480 ml 600 ml 240 ml 240 ml Output Urine Total 450 ml # Voids 2 2 1 2 # Bowel Movements 1 0 1 (Amy Atkins MD R1) Result Diagram: 01/14/17 0642 01/14/17 0642 Objective Remarks O. CONSTITUTIONAL/GEN: normally nourished, in NAD. EYES: conjunctiva normal, PERRLA, EOMI. ENT: Mouth and pharynx normal. NECK: thyroid midline, carotids symmetrical. LUNGS: clear A-P, respiratory effort is normal. CARDIOVASCULAR: RR without murmur or gallop. No significant edema. GI/ABD: soft without masses, without organomegaly. NEURO: No focal deficits. HEME/LYMPH: no bruising, petechia or significant adenopathy MUSC: back is normal in appearance. Pain in right sacroiliac area improved compared to previous day PSYCH/MENTAL STATUS: Alert and oriented x 3. (Amy Atkins MD R1) A/P Assessment and Plan This is a 26-year-old male with a past medical history significant for IV drug abuse, alcohol abuse, and MSSA osteomyelitis and sepsis of the right hip. Being admitted for osteomyelitis of the sacroiliac joint. Infectious disease on board. WDW: Dr. Castillo Discharge Planning Pending long course of antibiotics (Amy Atkins MD R1) Attending Attestation Case reviewed and discussed with the resident team. Agree with plan of care as discussed with me and documented in the resident note. (Joshua Castillo MD) Problem List: (1) Osteomyelitis Status: Acute Plan: Reports adequate pain control. Awaiting IR decision for possible drainage. * Admitted to inpatient * Orthopedic surgery consulted, they will not be doing any surgery due to location of osteomyelitis * Infectious disease consulted, recommendations appreciated * IR consulted for possible biopsy for culture, recommendations appreciated * Continue Ceftriaxone 2 g IV every 24 hours * [place] 12/3024 mg every 4 hours when necessary pain scale 1-4 * [place] 10/325 mg every 4 hours when necessary pain scale 5-10 * Toradol breakthrough pain * Blood cultures no growth to date 3 days * 2-D echo pending (2) Hx of drug abuse Status: Acute Plan: Patient reported history of IV drug abuse. Drug of choice was IV Dilaudid. Patient also had a history of alcohol abuse. * DC CIWA protocol * PO rally pack * Monitor for withdrawal at this time (3) Nutrition, metabolism, and development symptoms Status: Acute Plan: Diet: Regular diet Fluids: By mouth intake adequate Monitor electrolytes and replace accordingly Vitals every 4 Out of bed ad horace Physical therapy has been consulted Case management has been consulted DVT prophylaxis with SCDs and heparin CODE STATUS: Full code Disposition: Anticipate long hospitalization due to need for IV antibiotics (Amy Atkins MD R1) Problem Qualifiers (1) Osteomyelitis: Amy Atkins MD R1 January 15, 2017 09:01 Joshua Castillo MD January 15, 2017 12:33
[2017-01-15 12:00] VITALS: BP 136/52; PULSE 52; RESP 19; TEMP 97.1; O2SAT 100
[2017-01-15] MEDS: SODIUM CHLORIDE 0.9% FLUSH 10 ML FLUSH IV FLUSH PRN (12:31)
--- NOTE | 2017-01-15 13:43 | ECHLIM ---
Study Study Date:01/15/2017 STUDY CONCLUSIONS SUMMARY - Left ventricle: The cavity size was normal. Wall thickness was normal. Systolic function was normal. The estimated ejection fraction was in the range of 55% to 60%. Wall motion was normal; there were no regional wall motion abnormalities. - Aortic valve: Valve area: 2.95cm^2(VTI). Valve area: 2.95cm^2 (Vmax). If LV function is below 40, please consider prescribing an ACEI or ARB or document rationale for non-use. PROCEDURE DATA STUDY STATUS: Elective. Procedure: Transthoracic echocardiography. Image quality was adequate. Scanning was performed from the parasternal, apical, and subcostal acoustic windows. Study completion: The patient tolerated the procedure well. Transthoracic echocardiography. M-mode, complete 2D, complete spectral Doppler, and color Doppler. Height: Height: 70in. Weight: Weight: 153.7lb. Body mass index: BMI: 22.1kg/m^2. Body surface area: BSA: 1.87m^2. Patient status: Inpatient. CARDIAC ANATOMY LEFT VENTRICLE: The cavity size was normal. Wall thickness was normal. Systolic function was normal. The estimated ejection fraction was in the range of 55% to 60%. Wall motion was normal; there were no regional wall motion abnormalities. AORTIC VALVE: Trileaflet; normal thickness leaflets. Doppler: Transvalvular velocity was within the normal range. There was no stenosis. No regurgitation. Valve area: 2.95cm^2(VTI). Indexed valve area: 1.58cm^2/m^2 (VTI). Valve area: 2.95cm^2 (Vmax). Indexed valve area: 1.58cm^2/m^2 (Vmax). Mean gradient: 5mm Hg (S). AORTA: Aortic root: The aortic root was normal in size. MITRAL VALVE: Structurally normal valve. Doppler: Transvalvular velocity was within the normal range. There was no evidence for stenosis. Trace regurgitation. Peak gradient: 6mm Hg (D). LEFT ATRIUM: The atrium was normal in size. RIGHT VENTRICLE: The cavity size was normal. Wall thickness was normal. PULMONIC VALVE: Poorly visualized. Doppler: Transvalvular velocity was within the normal range. There was no evidence for stenosis. No regurgitation. TRICUSPID VALVE: Structurally normal valve. Doppler: Transvalvular velocity was within the normal range. Trace regurgitation. PULMONARY ARTERY: The main pulmonary artery was normal-sized. RIGHT ATRIUM: The atrium was normal in size. PERICARDIUM: There was no pericardial effusion. SYSTEMIC VEINS: Inferior vena cava: Not visualized. Patient weight: 153.7lb _Ejection fraction:_ 65-75% _Fractional shortening:_ 32% up to 5Kg 5-11.5Kg 11.6-22.9Kg 23-45Kg 45-57Kg Aortic Root 7-13 <17 13-22 17-27 17-27 LA diam 6-13 <23 24-38 33-47 37-40 RVID 10-17 7-15 7-15 7-18 8-17 LVIDd 12-22 <32 24-38 33-47 37-40 LVPW 2-4 3-6 5-7 6-8 7-8 IVS 2-4 3-6 5-7 6-8 7-8 BASIC MEASUREMENTS ADULT NORMAL Left ventricle LV internal dimension, ED, chordal *59.2 mm 43-52 level, PLAX LV internal dimension, ES, chordal 36.8 mm 23-38 level, PLAX Fractional shortening, chordal level, 38 % >29 PLAX LV posterior wall thickness, ED 5.7 mm IVS/LVPW ratio, ED 1.01 <1.3 Ventricular septum Septal thickness, ED 5.75 mm Aortic valve Leaflet separation 24 mm 15-26 Aorta Root diameter, ED 28 mm Left atrium Anterior-posterior dimension 26 mm Anterior-posterior dimension index 1.39 cm/m^2 <2.2 BASIC MEASUREMENTS ADULT NORMAL Aortic valve Leaflet separation 24 mm 15-26 DOPPLER MEASUREMENTS ADULT NORMAL Aortic valve Peak velocity, S 149 cm/s Mean velocity, S 107 cm/s VTI, S 32.6 cm Mean gradient, S 5 mm Hg Valve area, VTI 2.95 cm^2 Valve area index, VTI 1.58 cm^2/m^2 Valve area, Vmax 2.95 cm^2 Valve area index, Vmax 1.58 cm^2/m^2 Mitral valve Peak E-wave velocity 121 cm/s Peak A-wave velocity 45.9 cm/s Deceleration time 211 ms 150-230 Peak gradient, D 6 mm Hg Peak E/A ratio 2.6 Tricuspid valve Regurgitant peak velocity 269 cm/s Peak RV-RA gradient, S 29 mm Hg Maximal regurgitant velocity 269 cm/s LEGEND: Mean values are shown as u=mean value. Asterisk (*) massey values outside specified normal range. Prepared and signed by Sukh Whitney [id number]
[2017-01-15 16:00] VITALS: BP 140/68; PULSE 56; RESP 20; TEMP 98.6; O2SAT 100
[2017-01-15] MEDS: cefTRIAXone INJ 2,000 MG in SODIUM CHLORIDE 0.9% INJ 100 ML IV SCH (17:11)
[2017-01-15 20:20] VITALS: BP 137/70; PULSE 52; RESP 16; TEMP 97.6; O2SAT 100
[2017-01-16] VITALS (7 sets, daily range): BP systolic 115–142; BP diastolic 62–75; PULSE 42–55; RESP 16–22; TEMP 95.9–98.3; O2SAT 97–100
[2017-01-16] MEDS: ACETAMINOPHEN/HYDROcodone 325 MG/10 MG TAB PO PRN ×5 (03:38→22:54)
[2017-01-16] MEDS: KETOROLAC TROMETHAMINE 30 MG/ML (IVP) VIAL IV PUSH PRN ×3 (05:10→20:08)
[2017-01-16] MEDS: HEPARIN SODIUM - SQ 10,000 UNITS/ML VIAL SQ SCH ×3 (05:26→20:08)
[2017-01-16 06:19] LABS: HEMATOCRIT 34.7 % (39.0-51.0); MEAN CORPUSCULAR HEMOGLOBIN 28.4 PG (27.0-34.0); PLATELET COUNT 314 TH/MM3 (150-450); RED BLOOD COUNT 4.03 MIL/MM3 (4.50-5.90); RED CELL DISTRIBUTION WIDTH 13.8 % (11.6-17.2); REVIEW FLAG FINAL; WHITE BLOOD COUNT 8.2 TH/MM3 (4.0-11.0)
[2017-01-16 06:51] LABS: BICARBONATE 30.8 MEQ/L (21.0-32.0); POTASSIUM 4.2 MEQ/L (3.5-5.1)
--- NOTE | 2017-01-16 08:30 | HHI.FPPN ---
Subjective Remarks Patient seen and examined this morning. Afebrile vital signs stable. Patient reports that his pain in his abdomen and hip has completely resolved. He understands the plan is to await hours decision for possible drainage/biopsy of osteomyelitis. Also the plan for long-term antibiotics pending infectious disease's recommendations. Endorses: None Denies: Fever, chills, nausea, vomiting, shortness of breath, chest pain, headache, abdominal pain, calf pain (Seamus Douglas MD R2) Objective Vitals Vital Signs Date Time Temp Pulse Resp B/P Pulse Ox O2 Delivery O2 Flow Rate FiO2 01/16/17 06:05 18 01/16/17 04:44 18 01/16/17 04:30 96.9 55 16 126/64 98 01/16/17 02:10 Room Air 01/16/17 00:15 96.8 53 16 127/62 99 01/15/17 20:20 97.6 52 16 137/70 100 01/15/17 16:00 98.6 56 20 140/68 100 01/15/17 12:00 97.1 52 19 136/52 100 I/O 01/15/17 01/15/17 01/15/17 01/16/17 01/16/17 01/16/17 06:59 14:59 22:59 06:59 14:59 22:59 Intake Total 240 ml 1160 ml Balance 240 ml 1160 ml Intake Oral 240 ml 1160 ml # Voids 2 8 4 # Bowel Movements 1 1 0 (Seamus Douglas MD R2) Result Diagram: 01/16/17 0538 01/16/17 0538 Imaging Last Impressions Hip X-Ray 01/12/17 1828 Signed Impressions: Service Date/Time: Thursday, January 12, 2017 18:51 - CONCLUSION: Unremarkable examination of the right hip. Gaetano Izquierdo Jr., MD Pelvis MRI 01/12/17 0000 Signed Impressions: Service Date/Time: Thursday, January 12, 2017 22:00 - CONCLUSION: 1. Marrow edema involving the right sacral ala as well as the right hemipelvis as detailed above. There is surrounding soft tissue edema as well as edema involving the right iliacus muscle. A small intramuscular abscess is seen involving the right iliacus muscle. This is consistent with osteomyelitis. 2. Small volume free fluid within the pelvis. Gaetano Izquierdo Jr., MD Objective Remarks O. CONSTITUTIONAL/GEN: normally nourished, in NAD. EYES: conjunctiva normal, PERRLA, EOMI. ENT: Mouth and pharynx normal. NECK: thyroid midline, carotids symmetrical. LUNGS: clear A-P, respiratory effort is normal. CARDIOVASCULAR: RR without murmur or gallop. No significant edema. GI/ABD: soft without masses, without organomegaly. NEURO: No focal deficits. HEME/LYMPH: no bruising, petechia or significant adenopathy MUSC: back is normal in appearance. Nontender to palpation PSYCH/MENTAL STATUS: Alert and oriented x 3. Medications and IVs Current Medications Medications (Trade) Dose Ordered Sig/Roel Route Start Time Stop Time Status Last Admin (NS Flush) 2 ml UNSCH PRN IV FLUSH 01/12/17 22:15 01/15/17 12:31 (NS Flush) 2 ml BID IV FLUSH 01/13/17 09:00 01/15/17 20:01 (Tylenol) 650 mg Q4H PRN PO 01/12/17 22:15 (Zofran Inj) 4 mg Q6H PRN IVP 01/12/17 22:15 (Ambien) 5 mg HS PRN PO 01/12/17 22:15 (Heparin Inj) 5,000 units Q8H SQ 01/12/17 22:15 (Maria Del Rosario-Colace) 1 tab BID PO 01/13/17 09:00 01/15/17 08:51 (Folate) 1 mg DAILY PO 01/13/17 09:00 01/18/17 08:59 01/15/17 08:51 (Vitamin B1) 100 mg DAILY PO 01/13/17 09:00 01/15/17 08:51 (Theragran M Tab) 1 tab DAILY PO 01/13/17 09:00 01/18/17 08:59 01/15/17 08:51 (Catapres) 0.1 mg Q6H PRN PO 01/12/17 22:15 (Habitrol 21 Mg Patch.24 Hr) 1 patch DAILY T-DERMAL 01/13/17 09:00 01/15/17 08:51 Miscellaneous Information 1 DAILY T-DERMAL 01/13/17 09:00 01/15/17 08:51 ([place] 5-325 Mg) 1 tab Q4H PRN PO 01/12/17 22:45 ([place] 10-325 Mg) 1 tab Q4H PRN PO 01/12/17 22:45 01/16/17 03:38 Ketorolac Tromethamine 30 mg 30 mg Q6HR PRN IV PUSH 01/13/17 09:15 01/18/17 09:14 01/16/17 05:10 (Rocephin Inj/NS Inj) 100 ml @ 200 mls/hr Q24H IV 01/13/17 16:00 01/15/17 17:11 (Seamus Douglas MD R2) A/P Assessment and Plan This is a 26-year-old male with a past medical history significant for IV drug abuse, alcohol abuse, and MSSA osteomyelitis and sepsis of the right hip. Being admitted for osteomyelitis of the sacroiliac joint. Infectious disease on board. WDW: Dr. Castillo Discharge Planning Pending long course of antibiotics (Seamus Douglas MD R2) Attending Attestation Case reviewed and discussed with the resident team. Agree with plan of care as discussed with me and documented in the resident note. (Joshua Castillo MD) Problem List: (1) Osteomyelitis Status: Acute Plan: Reports adequate pain control. Awaiting IR decision for possible drainage. * Admitted to inpatient * Orthopedic surgery consulted, they will not be doing any surgery due to location of osteomyelitis * Infectious disease consulted, recommendations appreciated * IR consulted for possible biopsy for culture, recommendations appreciated * Continue Ceftriaxone 2 g IV every 24 hours * [place] 12/3024 mg every 4 hours when necessary pain scale 1-4 * [place] 10/325 mg every 4 hours when necessary pain scale 5-10 * Toradol breakthrough pain * Blood cultures no growth to date 3 days * 2-D echo within normal limits (2) Hx of drug abuse Status: Acute Plan: Patient reported history of IV drug abuse. Drug of choice was IV Dilaudid. Patient also had a history of alcohol abuse. * DC CIWA protocol * PO rally pack * Monitor for withdrawal at this time (3) Nutrition, metabolism, and development symptoms Status: Acute Plan: Diet: Regular diet Fluids: By mouth intake adequate Monitor electrolytes and replace accordingly Vitals every 4 Out of bed ad horace Physical therapy has been consulted Case management has been consulted DVT prophylaxis with SCDs and heparin CODE STATUS: Full code Disposition: Anticipate long hospitalization due to need for IV antibiotics (Seamus Douglas MD R2) Problem Qualifiers (1) Osteomyelitis: Seamus Douglas MD R2 January 16, 2017 08:30 Joshua Castillo MD January 16, 2017 15:23
[2017-01-16] MEDS: MULTIVITAMINS/MINERALS THERAPEUTIC TAB PO SCH (08:33)
[2017-01-16] MEDS: NICOTINE 21 MG/24 HR PATCH T-DERMAL SCH (08:33)
[2017-01-16] MEDS: FOLIC ACID 1 MG TAB PO SCH (08:33)
[2017-01-16] MEDS: THIAMINE HCL 100 MG TAB PO SCH (08:33)
[2017-01-16] MEDS: REMOVE OLD PATCH T-DERMAL SCH (08:34)
[2017-01-16] MEDS: SODIUM CHLORIDE 0.9% FLUSH 10 ML FLUSH IV FLUSH SCH ×2 (08:40→20:07)
[2017-01-16] MEDS: DOCUSATE SODIUM 50 MG/SENNA 8.6 MG TAB PO SCH ×2 (08:40→20:07)
[2017-01-16 11:06] LABS: APTT (PATIENT) 28.3 SEC (24.3-30.1); PROTHROMBIN TIME - PATIENT 11.5 SEC (9.8-11.6)
[2017-01-16] MEDS: SODIUM CHLORIDE 0.9% FLUSH 10 ML FLUSH IV FLUSH PRN ×2 (12:17→18:00)
[2017-01-16] MEDS ORDERED: LIDOCAINE HCL 1% 20 ML VIAL ONE (16:24)
[2017-01-16] MEDS ORDERED: fentaNYL CITRATE 250 MCG/5 ML AMP ONE (16:39)
[2017-01-16] MEDS: cefTRIAXone INJ 2,000 MG in SODIUM CHLORIDE 0.9% INJ 100 ML IV SCH (18:00)
[2017-01-17] VITALS (7 sets, daily range): BP systolic 131–151; BP diastolic 63–91; PULSE 37–61; RESP 16–18; TEMP 96.1–98; O2SAT 96–100
[2017-01-17] MEDS: HEPARIN SODIUM - SQ 10,000 UNITS/ML VIAL SQ SCH ×3 (00:43→20:58)
[2017-01-17] MEDS: MULTIVITAMINS/MINERALS THERAPEUTIC TAB PO SCH (08:07)
[2017-01-17] MEDS: THIAMINE HCL 100 MG TAB PO SCH (08:07)
[2017-01-17] MEDS: FOLIC ACID 1 MG TAB PO SCH (08:07)
[2017-01-17] MEDS: REMOVE OLD PATCH T-DERMAL SCH (08:08)
[2017-01-17] MEDS: NICOTINE 21 MG/24 HR PATCH T-DERMAL SCH (08:08)
[2017-01-17] MEDS: DOCUSATE SODIUM 50 MG/SENNA 8.6 MG TAB PO SCH ×2 (08:08→20:58)
[2017-01-17] MEDS: ACETAMINOPHEN/HYDROcodone 325 MG/10 MG TAB PO PRN ×4 (08:14→20:57)
[2017-01-17] MEDS: SODIUM CHLORIDE 0.9% FLUSH 10 ML FLUSH IV FLUSH SCH ×2 (09:00→20:58)
--- NOTE | 2017-01-17 09:52 | RADRPT ---
EXAM DATE/TIME: 01/16/2017 16:45 [facility] COMPARISON: HIP RIGHT (AP&LAT 2/3VWS) WO AP PELVIS, January 12, 2017, 18:51. INDICATIONS : Pelvic fluid collection. MEDICATION(S): 1.) 200 mcg fentanyl (Sublimaze) IV DEVICE(S): 1.) 22 gauge Spinal needle FLUID: Total volume of 3 cc of cloudy, red fluid was removed. Fluid was sent for laboratory ordered studies. MEDICAL HISTORY : None. SURGICAL HISTORY : None. ENCOUNTER: Initial ACUITY: 1 day PAIN SCORE: 0/10 LOCATION: pelvis PROCEDURE : CT guided aspiration of the right sacroiliac joint. The risks, benefits and alternatives to the procedure were explained and verbal and written consent w as obtained. Using automated exposure control and adjustment of the mA and/or kV according to patien t size, radiation dose was kept as low as reasonably achievable to obtain optimal diagnostic quality images. The site was prepped in sterile fashion. Full sterile technique was used, including cap, ma sk, sterile gloves and gown and a large sterile sheet. Hand hygiene and 2% chlorhexidine and/or beta dine/alcohol prep was utilized per protocol for cutaneous antisepsis. The skin and subcutaneous tiss ues were infiltrated with local anesthetic solution. A 22 gauge needle was advanced anteriorly in the right pelvis along the iliac fossa and directed towa rds the anterior aspect of the right sacroiliac joint. A total of 3 cc of cloudy yellow red fluid was removed. CONCLUSION: Uncomplicated right sacroiliac joint aspiration was performed, as above. A total of 3 cc of cloudy yellowish red fluid was removed. The sample was saved and sent to lab for e valuation. Cristobal Han MD on January 17, 2017 at 9:49 Board Certified Radiologist. This report was verified electronically.
--- NOTE | 2017-01-17 10:47 | HHI.FPPN ---
Subjective Remarks Patient seen and examined this morning. Afebrile vital signs stable. Patient tolerated his aspiration of abscess without very much difficulty. His pain is quite tolerable. His main concern is how long he will need antibiotics. Informed him we left a wait until infectious disease provides us with recommendations per the culture results. Endorses: None Denies: Fever, chills, nausea, vomiting, shortness of breath, chest pain, headache, abdominal pain, calf pain (Seamus Douglas MD R2) Objective Vitals Vital Signs Date Time Temp Pulse Resp B/P Pulse Ox O2 Delivery O2 Flow Rate FiO2 01/17/17 07:22 96.6 52 16 132/72 98 01/17/17 03:50 96.1 38 16 138/84 98 01/17/17 01:52 37 01/17/17 00:30 96.2 37 16 143/69 96 01/16/17 20:20 96.4 42 16 142/75 100 01/16/17 20:00 Room Air 01/16/17 17:00 97.5 52 22 120/67 97 01/16/17 15:42 98.3 51 18 133/70 98 01/16/17 11:28 96.5 50 18 135/65 98 I/O 01/16/17 01/16/17 01/16/17 01/17/17 01/17/17 01/17/17 07:00 15:00 23:00 07:00 15:00 23:00 Intake Total 0 ml 940 ml 347 ml Balance 0 ml 940 ml 347 ml Intake Oral 0 ml 940 ml 240 ml IV Total 107 ml # Voids 4 4 4 2 # Bowel Movements 0 1 2 0 (Seamus Douglas MD R2) Result Diagram: 01/16/17 0538 01/16/17 0538 Imaging Last Impressions Needle Aspiration CT 01/16/17 1637 Signed Impressions: Service Date/Time: Monday, January 16, 2017 16:45 - CONCLUSION: Uncomplicated right sacroiliac joint aspiration was performed, as above. A total of 3 cc of cloudy yellowish red fluid was removed. The sample was saved and sent to lab for evaluation. Cristobal Han MD Hip X-Ray 01/12/17 7000 Signed Impressions: Service Date/Time: Thursday, January 12, 2017 18:51 - CONCLUSION: Unremarkable examination of the right hip. Gaetano Izquierdo Jr., MD Pelvis MRI 01/12/17 0000 Signed Impressions: Service Date/Time: Thursday, January 12, 2017 22:00 - CONCLUSION: 1. Marrow edema involving the right sacral ala as well as the right hemipelvis as detailed above. There is surrounding soft tissue edema as well as edema involving the right iliacus muscle. A small intramuscular abscess is seen involving the right iliacus muscle. This is consistent with osteomyelitis. 2. Small volume free fluid within the pelvis. Gaetano Izquierdo Jr., MD Objective Remarks O. CONSTITUTIONAL/GEN: normally nourished, in NAD. EYES: conjunctiva normal, PERRLA, EOMI. ENT: Mouth and pharynx normal. NECK: thyroid midline, carotids symmetrical. LUNGS: clear A-P, respiratory effort is normal. CARDIOVASCULAR: RR without murmur or gallop. No significant edema. GI/ABD: soft without masses, without organomegaly. NEURO: No focal deficits. HEME/LYMPH: no bruising, petechia or significant adenopathy MUSC: back is normal in appearance. Nontender to palpation PSYCH/MENTAL STATUS: Alert and oriented x 3. Procedures Aspiration by IR on 01/16/17 Medications and IVs Current Medications Medications (Trade) Dose Ordered Sig/Roel Route Start Time Stop Time Status Last Admin (NS Flush) 2 ml UNSCH PRN IV FLUSH 01/12/17 22:15 01/16/17 18:00 (NS Flush) 2 ml BID IV FLUSH 01/13/17 09:00 01/16/17 08:40 (Tylenol) 650 mg Q4H PRN PO 01/12/17 22:15 (Zofran Inj) 4 mg Q6H PRN IVP 01/12/17 22:15 (Ambien) 5 mg HS PRN PO 01/12/17 22:15 (Heparin Inj) 5,000 units Q8H SQ 01/12/17 22:15 ([place]-Colace) 1 tab BID PO 01/13/17 09:00 01/15/17 08:51 (Folate) 1 mg DAILY PO 01/13/17 09:00 01/18/17 08:59 01/17/17 08:07 (Vitamin B1) 100 mg DAILY PO 01/13/17 09:00 01/17/17 08:07 (Theragran M Tab) 1 tab DAILY PO 01/13/17 09:00 01/18/17 08:59 01/17/17 08:07 (Catapres) 0.1 mg Q6H PRN PO 01/12/17 22:15 (Habitrol 21 Mg Patch.24 Hr) 1 patch DAILY T-DERMAL 01/13/17 09:00 01/16/17 08:33 Miscellaneous Information 1 DAILY T-DERMAL 01/13/17 09:00 01/16/17 08:34 ([place] 5-325 Mg) 1 tab Q4H PRN PO 01/12/17 22:45 ([place] 10-325 Mg) 1 tab Q4H PRN PO 01/12/17 22:45 01/17/17 08:14 Ketorolac Tromethamine 30 mg 30 mg Q6HR PRN IV PUSH 01/13/17 09:15 01/18/17 09:14 01/16/17 20:08 (Rocephin Inj/NS Inj) 100 ml @ 200 mls/hr Q24H IV 01/13/17 16:00 01/16/17 18:00 (Seamus Douglas MD R2) A/P Assessment and Plan This is a 26-year-old male with a past medical history significant for IV drug abuse, alcohol abuse, and MSSA osteomyelitis and sepsis of the right hip. Being admitted for osteomyelitis of the sacroiliac joint. Infectious disease on board. WDW: Dr. Castillo Discharge Planning Pending long course of antibiotics (Seamus Douglas MD R2) Attending Attestation Case reviewed and discussed with the resident team. Agree with plan of care as discussed with me and documented in the resident note. (Joshua Castillo MD) Problem List: (1) Osteomyelitis Status: Acute Plan: Reports adequate pain control. Awaiting IR decision for possible drainage. * Admitted to inpatient * Orthopedic surgery consulted, they will not be doing any surgery due to location of osteomyelitis * Infectious disease consulted, recommendations appreciated * Status post IR aspiration of abscess * Continue Ceftriaxone 2 g IV every 24 hours * [place] 12/3024 mg every 4 hours when necessary pain scale 1-4 * [place] 10/325 mg every 4 hours when necessary pain scale 5-10 * Toradol breakthrough pain * Blood cultures no growth to date 3 days * 2-D echo within normal limits * Labs every 3rd day (2) Hx of drug abuse Status: Acute Plan: Patient reported history of IV drug abuse. Drug of choice was IV Dilaudid. Patient also had a history of alcohol abuse. * DC CIWA protocol * PO rally pack * Monitor for withdrawal at this time (3) Nutrition, metabolism, and development symptoms Status: Acute Plan: Diet: Regular diet Fluids: By mouth intake adequate Monitor electrolytes and replace accordingly Vitals every 4 Out of bed ad horace Physical therapy has been consulted Case management has been consulted DVT prophylaxis with SCDs and heparin CODE STATUS: Full code Disposition: Anticipate long hospitalization due to need for IV antibiotics (Seamus Douglas MD R2) Problem Qualifiers (1) Osteomyelitis: Seamus Douglas MD R2 January 17, 2017 10:47 Joshua Castillo MD Jan 18, 2017 12:05
[2017-01-17] MEDS: cefTRIAXone INJ 2,000 MG in SODIUM CHLORIDE 0.9% INJ 100 ML IV SCH (16:21)
[2017-01-18 00:47] VITALS: BP 132/68; PULSE 58; RESP 18; TEMP 96.7; O2SAT 96
[2017-01-18] MEDS: ACETAMINOPHEN/HYDROcodone 325 MG/10 MG TAB PO PRN ×4 (01:20→15:26)
[2017-01-18] MEDS: HEPARIN SODIUM - SQ 10,000 UNITS/ML VIAL SQ SCH ×2 (03:18→14:15)
[2017-01-18 06:00] LABS: HEMATOCRIT 37.3 % (39.0-51.0); MEAN CELL VOLUME 86.1 FL (80.0-100.0); MEAN CORPUSCULAR HEMOGLOBIN 28.4 PG (27.0-34.0); PLATELET COUNT 384 TH/MM3 (150-450); RED BLOOD COUNT 4.33 MIL/MM3 (4.50-5.90); RED CELL DISTRIBUTION WIDTH 13.8 % (11.6-17.2); REVIEW FLAG FINAL; WHITE BLOOD COUNT 8.4 TH/MM3 (4.0-11.0)
[2017-01-18 06:32] VITALS: BP 131/65; PULSE 54; RESP 18; TEMP 96.8; O2SAT 98
[2017-01-18 08:00] VITALS: BP 130/85; PULSE 71; RESP 20; TEMP 96.4; O2SAT 97
--- NOTE | 2017-01-18 08:56 | HHI.FPPN ---
Subjective Remarks Patient seen and examined this morning. AFVSS. Informed the patient that the aspiration fluid is growing Gram negative rods and that we should get more information and hopefully the sensitivities in order to figure out the best way to treat the infection. He is really hoping that he can take oral antibiotics or get into the infusion clinic as he does not stay in the hospital for a long period of time. Endorses: None Denies: Fever, chills, nausea, vomiting, shortness of breath, chest pain, headache, abdominal pain, calf pain (Seamus Douglas MD R2) Objective Vitals Vital Signs Date Time Temp Pulse Resp B/P Pulse Ox O2 Delivery O2 Flow Rate FiO2 01/18/17 06:32 96.8 54 18 131/65 98 01/18/17 00:47 96.7 58 18 132/68 96 01/17/17 20:16 97.5 60 18 151/91 100 01/17/17 16:00 98.0 61 17 131/73 97 01/17/17 11:53 97.6 56 17 136/63 98 I/O 01/17/17 01/17/17 01/17/17 01/18/17 01/18/17 01/18/17 07:00 15:00 23:00 07:00 15:00 23:00 Intake Total 347 ml 1200 ml 480 ml 360 ml Balance 347 ml 1200 ml 480 ml 360 ml Intake Oral 240 ml 1200 ml 480 ml 360 ml IV Total 107 ml # Voids 2 4 4 3 # Bowel Movements 0 2 1 0 (Seamus Douglas MD R2) Result Diagram: 01/18/17 0525 01/16/17 0538 Imaging Last Impressions Needle Aspiration CT 01/16/17 1637 Signed Impressions: Service Date/Time: Monday, January 16, 2017 16:45 - CONCLUSION: Uncomplicated right sacroiliac joint aspiration was performed, as above. A total of 3 cc of cloudy yellowish red fluid was removed. The sample was saved and sent to lab for evaluation. Cristobal Han MD Hip X-Ray 01/12/17 1828 Signed Impressions: Service Date/Time: Thursday, January 12, 2017 18:51 - CONCLUSION: Unremarkable examination of the right hip. Gaetano Izquierdo Jr., MD Pelvis MRI 01/12/17 0000 Signed Impressions: Service Date/Time: Thursday, January 12, 2017 22:00 - CONCLUSION: 1. Marrow edema involving the right sacral ala as well as the right hemipelvis as detailed above. There is surrounding soft tissue edema as well as edema involving the right iliacus muscle. A small intramuscular abscess is seen involving the right iliacus muscle. This is consistent with osteomyelitis. 2. Small volume free fluid within the pelvis. Gaetano Izquierdo Jr., MD Objective Remarks O. CONSTITUTIONAL/GEN: normally nourished, in NAD. EYES: conjunctiva normal, PERRLA, EOMI. ENT: Mouth and pharynx normal. NECK: thyroid midline, carotids symmetrical. LUNGS: clear A-P, respiratory effort is normal. CARDIOVASCULAR: RR without murmur or gallop. No significant edema. GI/ABD: soft without masses, without organomegaly. NEURO: No focal deficits. HEME/LYMPH: no bruising, petechia or significant adenopathy MUSC: back is normal in appearance. Nontender to palpation PSYCH/MENTAL STATUS: Alert and oriented x 3. Procedures Aspiration by IR on 01/16/17 Medications and IVs Current Medications Medications (Trade) Dose Ordered Sig/Roel Route Start Time Stop Time Status Last Admin (NS Flush) 2 ml UNSCH PRN IV FLUSH 01/12/17 22:15 01/16/17 18:00 (NS Flush) 2 ml BID IV FLUSH 01/13/17 09:00 01/17/17 20:58 (Tylenol) 650 mg Q4H PRN PO 01/12/17 22:15 (Zofran Inj) 4 mg Q6H PRN IVP 01/12/17 22:15 (Ambien) 5 mg HS PRN PO 01/12/17 22:15 (Heparin Inj) 5,000 units Q8H SQ 01/12/17 22:15 (Maria Del Rosario-Colace) 1 tab BID PO 01/13/17 09:00 01/15/17 08:51 (Folate) 1 mg DAILY PO 01/13/17 09:00 01/18/17 08:59 01/17/17 08:07 (Vitamin B1) 100 mg DAILY PO 01/13/17 09:00 01/17/17 08:07 (Theragran M Tab) 1 tab DAILY PO 01/13/17 09:00 01/18/17 08:59 01/17/17 08:07 (Catapres) 0.1 mg Q6H PRN PO 01/12/17 22:15 (Habitrol 21 Mg Patch.24 Hr) 1 patch DAILY T-DERMAL 01/13/17 09:00 01/16/17 08:33 Miscellaneous Information 1 DAILY T-DERMAL 01/13/17 09:00 01/16/17 08:34 ([place] 5-325 Mg) 1 tab Q4H PRN PO 01/12/17 22:45 ([place] 10-325 Mg) 1 tab Q4H PRN PO 01/12/17 22:45 01/18/17 05:31 Ketorolac Tromethamine 30 mg 30 mg Q6HR PRN IV PUSH 01/13/17 09:15 01/18/17 09:14 01/16/17 20:08 (Rocephin Inj/NS Inj) 100 ml @ 200 mls/hr Q24H IV 01/13/17 16:00 01/17/17 16:21 (Seamus Douglas MD R2) A/P Assessment and Plan This is a 26-year-old male with a past medical history significant for IV drug abuse, alcohol abuse, and MSSA osteomyelitis and sepsis of the right hip. Being admitted for osteomyelitis of the sacroiliac joint. Infectious disease on board. WDW: Dr. Castillo Discharge Planning Pending long course of antibiotics (Seamus Douglas MD R2) Attending Attestation Case reviewed and discussed with the resident team. Agree with plan of care as discussed with me and documented in the resident note. (Joshua Castillo MD) Problem List: (1) Osteomyelitis Status: Acute Plan: Reports adequate pain control. Growing gram-negative rods from aspiration, awaiting sensitivities and IDs recommendations for long-term antibiotic treatment * Admitted to inpatient * Orthopedic surgery consulted, they will not be doing any surgery due to location of osteomyelitis * Infectious disease consulted, recommendations appreciated * Status post IR aspiration of abscess * Cultures: Gram-negative rods * Continue Ceftriaxone 2 g IV every 24 hours * [place] 12/3024 mg every 4 hours when necessary pain scale 1-4 * [place] 10/325 mg every 4 hours when necessary pain scale 5-10 * Toradol breakthrough pain * Blood cultures no growth to date 3 days * 2-D echo within normal limits * Labs every 3rd day (2) Hx of drug abuse Status: Acute Plan: Patient reported history of IV drug abuse. Drug of choice was IV Dilaudid. Patient also had a history of alcohol abuse. * DC CIWA protocol * PO rally pack * Monitor for withdrawal at this time (3) Nutrition, metabolism, and development symptoms Status: Acute Plan: Diet: Regular diet Fluids: By mouth intake adequate Monitor electrolytes and replace accordingly Vitals every 4 Out of bed ad horace Physical therapy has been consulted Case management has been consulted DVT prophylaxis with SCDs and heparin CODE STATUS: Full code Disposition: Anticipate long hospitalization due to need for IV antibiotics (Seamus Douglas MD R2) Problem Qualifiers (1) Osteomyelitis: Seamus Douglas MD R2 Jan 18, 2017 08:56 Joshua Castillo MD Jan 18, 2017 12:15
[2017-01-18] MEDS: REMOVE OLD PATCH T-DERMAL SCH (09:00)
[2017-01-18] MEDS: THIAMINE HCL 100 MG TAB PO SCH (09:59)
[2017-01-18] MEDS: SODIUM CHLORIDE 0.9% FLUSH 10 ML FLUSH IV FLUSH SCH (09:59)
[2017-01-18] MEDS: DOCUSATE SODIUM 50 MG/SENNA 8.6 MG TAB PO SCH (09:59)
[2017-01-18] MEDS: NICOTINE 21 MG/24 HR PATCH T-DERMAL SCH (09:59)
[2017-01-18 12:00] VITALS: BP 141/71; PULSE 50; RESP 18; TEMP 97.9; O2SAT 100
--- NOTE | 2017-01-18 12:23 | HHI.IDPN ---
Subjective Subjective Remarks doing better no fever no chills pain significantly improved, can bear weight on his R hip bone clx grew Kleb pneumo pierre S blood clx ne - final 2 D echo negative , adequaete quality Antibiotics CFTX Allergies: Coded Allergies: No Known Allergies (Unverified , 01/12/17) Objective . Vital Signs Date Time Temp Pulse Resp B/P Pulse Ox O2 Delivery O2 Flow Rate FiO2 01/18/17 08:00 96.4 71 20 130/85 97 01/18/17 06:32 96.8 54 18 131/65 98 01/18/17 00:47 96.7 58 18 132/68 96 01/17/17 20:16 97.5 60 18 151/91 100 01/17/17 16:00 98.0 61 17 131/73 97 01/17/17 01/17/17 01/18/17 15:00 23:00 07:00 Intake Total 1200 ml 480 ml 360 ml Balance 1200 ml 480 ml 360 ml Intake Oral 1200 ml 480 ml 360 ml # Voids 4 4 3 # Bowel Movements 2 1 0 . Laboratory Tests Test 01/18/17 05:25 White Blood Count 8.4 TH/MM3 Red Blood Count 4.33 MIL/MM3 Hemoglobin 12.3 GM/DL Hematocrit 37.3 % Mean Corpuscular Volume 86.1 FL Mean Corpuscular Hemoglobin 28.4 PG Mean Corpuscular Hemoglobin 33.0 % Concent Red Cell Distribution Width 13.8 % Platelet Count 384 TH/MM3 Mean Platelet Volume 8.0 FL Microbiology Date/Time Procedure Status Source Growth 01/16/17 17:03 Gram Stain - Final Resulted Fluid Other 01/16/17 17:03 Body Fluid Culture - Preliminary Resulted Klebsiella Pneumoniae Imaging Last Impressions Needle Aspiration CT 01/16/17 1637 Signed Impressions: Service Date/Time: Monday, January 16, 2017 16:45 - CONCLUSION: Uncomplicated right sacroiliac joint aspiration was performed, as above. A total of 3 cc of cloudy yellowish red fluid was removed. The sample was saved and sent to lab for evaluation. Cristobal Han MD Hip X-Ray 01/12/17 1828 Signed Impressions: Service Date/Time: Thursday, January 12, 2017 18:51 - CONCLUSION: Unremarkable examination of the right hip. Gaetano Izquierdo Jr., MD Pelvis MRI 01/12/17 0000 Signed Impressions: Service Date/Time: Thursday, January 12, 2017 22:00 - CONCLUSION: 1. Marrow edema involving the right sacral ala as well as the right hemipelvis as detailed above. There is surrounding soft tissue edema as well as edema involving the right iliacus muscle. A small intramuscular abscess is seen involving the right iliacus muscle. This is consistent with osteomyelitis. 2. Small volume free fluid within the pelvis. Gaetano Izquierdo Jr., MD Physical Exam CONSTITUTIONAL/GENERAL: This is an adequately nourished patient, in no apparent distress. TUBES/LINES/DRAINS: SKIN: No jaundice, rashes, or lesions. Skin temperature appropriate. Not diaphoretic. CARDIOVASCULAR: Regular rate and rhythm without gallops, or rubs. 2/6 systolic blowing murmur with max on LUSB No JVD. Peripheral pulses symmetric. RESPIRATORY/CHEST: Symmetric, unlabored respirations. Clear to auscultation. Breath sounds equal bilaterally. No wheezes, rales, or rhonchi. GASTROINTESTINAL: Abdomen soft, non-tender, nondistended. No hepato-splenomegaly , or palpable masses. No guarding. Bowel sounds present. GENITOURINARY: Without palpable bladder distension. MUSCULOSKELETAL: Extremities without clubbing, cyanosis, or edema. No joint tenderness or effusion noted. No calf tenderness. No mottling or clubbing. R hip, buttock not tender to palpation R hip with full ROM NEUROLOGICAL: Awake and alert. Motor and sensory grossly within normal limits. Follows commands. Normal speech. Moves all extremities. PSYCHIATRIC: No obvious anxiety/depression. no apparent hallucinations or other psychotic thought process. Assessment & Plan Remarks R hip and hemipelvis osteomyelits, intramuscular abscess, Kleb ppneumo pierre S - ortho saw the pt recommend no surg intervention Previously MSSA (established by blood clx) Kleb pneumpo bacteremia - soource is ID' d as osteo - non suatained, repeat BC negative - 2 D echo negative Pt never had bx for clx , IVDU Cardiac murmur - dc CFTX 2 - pt can be switched to po Levaquin 750 mg daily x 10 weeks with f/u with PCP , ortho - labs biweekly: CBC CMP, ESR - pt needs to report rash, diarrhea, abd pain, nausea, vomiting achilles pain - pt needs to space dailry products and vtamins containing Ca, Mg , Zn at least 2 hrs before/after levaquine to prevent absorbtion problems OK to dc home dw Dr Misael Lang,Estelle Briceno MD Jan 18, 2017 12:23
[2017-01-18] MEDS ORDERED: LEVO750T3 PO (12:26)
[2017-01-18] MEDS ORDERED: LEVOFLOXACIN 750 MG TAB PO SCH (13:00)
--- NOTE | 2017-01-18 14:20 | HHI.DCPOC ---
Discharge Care Plan Diagnosis: (1) Osteomyelitis (2) Osteomyelitis of sacroiliac region Goals to Promote Your Health * To prevent worsening of your condition and complications * To maintain your health at the optimal level Take the Levaquin as prescribed to completion. Establish follow up with a PCP Take a probiotic Directions to Meet Your Goals Take your medications as prescribed Follow your dietary instruction Follow activity as directed Keep your appointments as scheduled Take your immunizations and boosters as scheduled If your symptoms worsen call your PCP, if no PCP go to Urgent Care Center or Emergency Room Smoking is Dangerous to Your Health. Avoid second hand smoke Call the 24-hour hour crisis hotline for domestic abuse at Seamus Douglas MD R2 Jan 18, 2017 14:20
--- NOTE | 2017-01-18 14:24 | HHI.DS ---
Discharge Summary Admission Date January 12, 2017 at 21:41 Discharge Date: Jan 18, 2017 Admitting Diagnosis Osteomyelitis (1) Osteomyelitis Diagnosis: Principal Plan: Reports adequate pain control. Growing gram-negative rods from aspiration, awaiting sensitivities and IDs recommendations for long-term antibiotic treatment * Admitted to inpatient * Orthopedic surgery consulted, they will not be doing any surgery due to location of osteomyelitis * Infectious disease consulted, recommendations appreciated * Status post IR aspiration of abscess * Cultures: Gram-negative rods * Continue Ceftriaxone 2 g IV every 24 hours * [place] 12/3024 mg every 4 hours when necessary pain scale 1-4 * [place] 10/325 mg every 4 hours when necessary pain scale 5-10 * Toradol breakthrough pain * Blood cultures no growth to date 3 days * 2-D echo within normal limits * Labs every 3rd day (2) Hx of drug abuse Diagnosis: Secondary Plan: Patient reported history of IV drug abuse. Drug of choice was IV Dilaudid. Patient also had a history of alcohol abuse. * DC CIWA protocol * PO rally pack * Monitor for withdrawal at this time (3) Nutrition, metabolism, and development symptoms Diagnosis: Secondary Plan: Diet: Regular diet Fluids: By mouth intake adequate Monitor electrolytes and replace accordingly Vitals every 4 Out of bed ad horace Physical therapy has been consulted Case management has been consulted DVT prophylaxis with SCDs and heparin CODE STATUS: Full code Disposition: Anticipate long hospitalization due to need for IV antibiotics Consultants IR, infectious disease, orthopedics Procedures Aspiration by IR on 01/16/17 Brief History This is a 26-year-old male with a past medical history significant for IV drug abuse, alcohol abuse, and MSSA osteomyelitis and sepsis of the right hip. He had osteomyelitis of his hip in August, was in the hospital (at [facility] in [place]) for nearly a month, and upon discharge did not get adequate follow-up. He says that on Sunday01/08/17 he was working outside for a long time, worked really hard, and felt like his body was very sore afterwards. Then on the next day Sunday01/09/17 he felt severe pain in his right hip and he could no longer bear weight when he tried to walk. So decided to go the hospital and went to [facility]. He says he is started on vancomycin and some other antibiotics uncertain as to what was, and said that he had an MRI performed there. He says while he was there he was diagnosed with osteomyelitis and was told that he would need 6 weeks of IV antibiotics. Prior to completion of his hospitalization he left AMA yesterday because he didn't like the way he was being treated. He says his been using crutches since leaving the hospital, and the pain became too severe today so he came to [place]. Patient reports that the Toradol helps with the pain some, abduction of the hip causes severe pain, as well as flexion and extension of the hip. If he rolls onto his right side and applies pressure to the hip causes severe pain. He is only comfortable if he keeps the leg still. Throughout this whole time frame patient denied any fevers, chills, nausea vomiting, or diarrhea. Today he admits to having some abdominal pain but it is mild and tolerable. Records were obtained from [facility], an MRI pelvis with and without contrast showed right sacroiliac joint effusion which was suspicious for septic arthritis with osteomyelitis of the right sacral A LA and right iliac bone as well as myositis of the right iliac muscle. CBC/BMP: 01/18/17 0525 01/16/17 0538 Significant Findings Laboratory Tests Test 01/16/17 01/18/17 05:38 05:25 Red Blood Count 4.03 MIL/MM3 4.33 MIL/MM3 (4.50-5.90) (4.50-5.90) Hemoglobin 11.4 GM/DL 12.3 GM/DL (13.0-17.0) (13.0-17.0) Hematocrit 34.7 % 37.3 % (39.0-51.0) (39.0-51.0) Creatinine 0.58 MG/DL (0.60-1.30) Calcium Level 8.3 MG/DL (8.5-10.1) Imaging Last Impressions Needle Aspiration CT 01/16/17 1637 Signed Impressions: Service Date/Time: Monday, January 16, 2017 16:45 - CONCLUSION: Uncomplicated right sacroiliac joint aspiration was performed, as above. A total of 3 cc of cloudy yellowish red fluid was removed. The sample was saved and sent to lab for evaluation. Cristobal Han MD Hip X-Ray 01/12/17 1828 Signed Impressions: Service Date/Time: Thursday, January 12, 2017 18:51 - CONCLUSION: Unremarkable examination of the right hip. Gaetano Izquierdo Jr., MD Pelvis MRI 01/12/17 0000 Signed Impressions: Service Date/Time: Thursday, January 12, 2017 22:00 - CONCLUSION: 1. Marrow edema involving the right sacral ala as well as the right hemipelvis as detailed above. There is surrounding soft tissue edema as well as edema involving the right iliacus muscle. A small intramuscular abscess is seen involving the right iliacus muscle. This is consistent with osteomyelitis. 2. Small volume free fluid within the pelvis. Gaetano Izquierdo Jr., MD PE at Discharge O. CONSTITUTIONAL/GEN: normally nourished, in NAD. EYES: conjunctiva normal, PERRLA, EOMI. ENT: Mouth and pharynx normal. NECK: thyroid midline, carotids symmetrical. LUNGS: clear A-P, respiratory effort is normal. CARDIOVASCULAR: RR without murmur or gallop. No significant edema. GI/ABD: soft without masses, without organomegaly. NEURO: No focal deficits. HEME/LYMPH: no bruising, petechia or significant adenopathy MUSC: back is normal in appearance. Nontender to palpation PSYCH/MENTAL STATUS: Alert and oriented x 3. Hospital Course Patient admitted on 01/12/17 for severe pain in his hip found to have osteomyelitis. The osteomyelitis was infecting his sacroiliac region. Patient' s pain was controlled on the hospital and he was started on IV antibiotics. The abscess was drained by IR on 01/16/17. It was determined the patient had reached his baseline and would require long-term course of antibiotics. He was discharged with Levaquin by mouth for 10 weeks. If he does not tolerate it he will require IV antibiotics. Pt Condition on Discharge: Stable Discharge Disposition: Discharge Home Discharge Instructions DIET: Follow Instructions for: As Tolerated, No Restrictions Activities you can perform: Regular-No Restrictions Follow up Referrals: PCP Follow-up - 1 Week New Medications: Levofloxacin (Levofloxacin) 750 Mg Tablet 750 MG PO DAILY Infection Days 70 Ref 0 TAB Continued Medications: Ibuprofen (Ibuprofen) 200 Mg Cap 200 MG PO Q4H PRN pain Ref 0 CAP Seamus Douglas MD R2 Jan 18, 2017 14:24
== END 2017-01-18 16:52 | disposition home or self-care (01) | DRG 541 ==
LOC: NEPC 17:46 → NEDA 21:41 → N06B 23:20
PROVIDERS: ADMIT Family Medicine; ATTEND Family Medicine
PROC: 0S973ZX Drainage of Right Sacroiliac Joint, Percutaneous Approach, Diagnostic (ICD-10-PCS; principal; 2017-01-16)
DX: M86.18 Other acute osteomyelitis, other site (principal); B96.1 Klebsiella pneumoniae [K. pneumoniae] as the cause of diseases classified elsewhere; M46.1 Sacroiliitis, not elsewhere classified; F19.10 Other psychoactive substance abuse, uncomplicated; M25.551 Pain in right hip; F17.210 Nicotine dependence, cigarettes, uncomplicated; F12.90 Cannabis use, unspecified, uncomplicated; R01.1 Cardiac murmur, unspecified; F10.10 Alcohol abuse, uncomplicated
CPT/HCPCS: 20610; 72197; 73502; 77012; 80048; 80053; 80307; 81001; 83735; 84100; 85025; 85027; 85610; 85730; 87040; 87070; 87077; 87186; 87205; 93308; 96374; A9579; J0692; J0696; J1885; J3010; J3370; J7050